=== PATIENT | female | born 1950 | race Caucasian/White ===

== ENCOUNTER 2017-07-04 10:57 | Inpatient (IN) | payer OTHER ==
[2017-07-04 11:11] LABS: BASOPHIL 0.5 % (0-2.0); EOSINOPHIL 1.7 % (0-4.5); MCH 29.4 pg (25.7-33.7); MCHC 33.3 g/dl (32.0-36.0); MEAN CELL VOLUME 88.3 fl (80-96); MEAN PLT VOLUME 7.6 fl (7.5-11.1); NEUTROPHILS 43.7 % (42.8-82.8); PLATELET COUNT 307 K/MM3 (134-434); RDW 13.3 % (11.6-15.6); WHITE BLOOD COUNT 7.6 K/mm3 (4.0-10.0)
--- NOTE | 2017-07-04 11:17 | PDOC ---
History of Present Illness <Lucila Radford - Last Filed: 07/04/17 11:56> - History of Present Illness Initial Comments: 66 year old female BIBEMS with PMH of HTN presenting with symptoms consistent with CVA (dysarthria, and left sided UE + LE weakness after a fall). She was completely fine before 10 AM but then felt weak on her left side and fell to the floor. She was dysarthric when her came to help her up. Her dysrathria worsened during her EMS ride but started to improve slightly at 10: 55 on arrival to the ED. In the ED she was still disarthric, with LUE, and LLE weakness. Denies fevers, chills, nausea, vomiting, diarrhea, or any other sick symptoms. 07/04/17 12:11 <Daniel Mahan - Last Filed: 07/04/17 20:12> - General Stated Complaint: POSS STROKE Time Seen by Provider: 07/04/17 11:17 tPA Exclusion Checklist 0-3hr - Time Elapsed Date last known well: 07/04/17 - Thrombolytic Therapy Candidate Is the patient eligible for Thrombolytic Therapy?: Yes - Exclusion Criteria 0-3hr SBP greater than 185 or DBP greater than 110mmHg despite tx: No Recent IC/spinal surgery,head trauma or stroke w/in last 3mo: No Hx of previous IC hemorrhage, IC neoplasm, AVM or aneurysm: No Active internal bleeding: No Blding diathesis(low plt ct, inc PTT,INR>1.7 or use of NOAC): No Symptoms suggest subarachnoid hemorrhage: No CT demonstrates multilobar infarct(>1/3 cerebral hemiphere): No Arterial puncture at noncompressible site in previous 7 days: No Blood glucose concentration less than 50mg/dL (2.7mmol/L): No - Relative Exclusion Criteria 0-3h Life expectancy <1yr/severe co-morbid illness/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: No : No Patient/family refused: No Rapid improvement: No Stroke severity too mild: No Recent acute ME (w/in previous 3 months): No Seizure at onset with postictal residual neuro impairments: No Major surgery or serious trauma w/in previous 14 days: No Recent GI or hemorrhage (w/in previous 21 days): No <Lucila Radford - Last Filed: 07/04/17 11:56> NIH Stroke Scale - Last Known Well Date/Time & Onset Date Last Known Well: 07/04/17 Time Last Known Well: 10:00 - Initial Evaluation Level of consciousness: Alert Ask patient the month and their age: Answers both correctly Ask patient to open & close eyes; make fist and let go: Obeys both correctly Best gaze (horizontal eye movement): Normal Visual field testing: No visual field loss Facial paresis (Show teeth/raise eyebrows/close eyes tight): Minor paralysis ( flattened nasolabial fold, asymmetry on smiling) Motor Function: Left Arm: Normal Motor Function: Right Arm: Normal (extends arm 90 (or 45) degrees for 10 seconds without drift Motor Function: Left Leg: Drift Motor Function: Right Leg: Normal (extends leg 30 degrees for 5 seconds without drift) Limb Ataxia: Present in one limb Sensory(Use pinprick test arms,legs,trunk,face/side to side): Normal Best language (Describe picture, name items, read sentences): No Aphasia Dysarthria (read several words): Mild to moderate slurring of words Extinction and Inattention: No abnormality (Initial stroke scale on arrival) - Total Score NIH Stroke Scale Score: 4 <Daniel Mahan - Last Filed: 07/04/17 20:12> Past History <Lucila Radford - Last Filed: 07/04/17 11:56> - Past Medical History Anemia: No Asthma: No Cancer: No Cardiac Disorders: No CVA: No COPD: No CHF: No Dementia: No Diabetes: No GI Disorders: No Disorders: No HTN: Yes Hypercholesterolemia: Yes Liver Disease: No Seizures: No Thyroid Disease: Yes (NODULES) - Surgical History Abdominal Surgery: No Appendectomy: No Cardiac Surgery: No Cholecystectomy: No Lung Surgery: No Neurologic Surgery: No Orthopedic Surgery: No - Suicide/Smoking/Psychosocial Hx Smoking History: Never smoked Have you smoked in the past 12 months: No Hx Alcohol Use: No Drug/Substance Use Hx: No Substance Use Type: None Hx Substance Use Treatment: No <Daniel Mahan - Last Filed: 07/04/17 20:12> - Past Medical History Allergies/Adverse Reactions: Allergies Allergy/AdvReac Type Severity Reaction Status Date / Time Penicillins Allergy itching, Verified 07/04/17 11:24 rash bee sting Allergy Swelling Uncoded 07/04/17 11:24 Home Medications: Ambulatory Orders Aspirin [ASA -] 81 mg PO DAILY 09/11/15 Ezetimibe [Zetia] 10 mg PO HS 09/11/15 Multivitamins [Tab-A-Vit -] 1 tab PO DAILY 09/11/15 Nebivolol HCl [Bystolic] 10 mg PO DAILY 09/11/15 Olmesartan Medoxomil [Benicar -] 40 mg PO DAILY 09/11/15 Ranitidine [Zantac -] 150 mg PO DAILY 09/11/15 Review of Systems - Review of Systems Constitutional: No: Chills, Diaphoresis, Fever HEENTM: No: Eye Pain, Blurred Vision Respiratory: No: Cough, Shortness of Breath Cardiac (ROS): No: Chest Pain, Edema, Irregular Heart Rate, Chest Tightness ABD/GI: No: Diarrhea, Nausea, Vomiting Musculoskeletal: Yes: Muscle Weakness Integumentary: No: Bruising, Lesions Neurological: Yes: Unsteady Gait, Ataxia. No: Headache, Numbness, Paresthesia <Daniel Mahan - Last Filed: 07/04/17 20:12> *Physical Exam - Vital Signs Last Vital Signs Temp Pulse Resp BP Pulse Ox 97.0 F L 70 18 130/73 100 07/04/17 10:57 07/04/17 10:57 07/04/17 10:57 07/04/17 10:57 07/04/17 10:57 <Lucila Radford - Last Filed: 07/04/17 11:56> - Physical Exam General Appearance: Yes: Nourished, Appropriately Dressed. No: Apparent Distress HEENT: positive: EOMI, DOREEN. negative: Normal ENT Inspection (Left sided facial droop) Neck: positive: Trachea midline, Normal Thyroid, Supple. negative: Tender, Rigid Respiratory/Chest: positive: Lungs Clear, Normal Breath Sounds. negative: Chest Tender, Respiratory Distress Cardiovascular: positive: Regular Rhythm, Regular Rate, S1, S2. negative: Murmur Gastrointestinal/Abdominal: positive: Normal Bowel Sounds, Flat, Soft. negative : Tender Musculoskeletal: negative: Normal Inspection (Left Upper and Lower extremity weakness) Extremity: positive: Normal Inspection. negative: Normal Range of Motion ( Limted Range of motion in left upper extremity) Integumentary: positive: Normal Color, Dry, Warm Neurologic: positive: Fully Oriented, Alert, Facial Droop (Per NIHSS). 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, Motor Strength 5/5, Finger to Nose (Left sided finger to nose delayed.) <Daniel Mahan - Last Filed: 07/04/17 20:12> ED Treatment Course - LABORATORY CBC & Chemistry Diagram: 07/04/17 11:04 07/04/17 11:03 - ADDITIONAL ORDERS Additional order review: Laboratory Results 07/04/17 07/04/17 11:04 11:03 PT with INR 11.10 INR 0.98 Sodium 138 Potassium 4.2 Chloride 106 Carbon Dioxide 25 Anion Gap 7 L BUN 22 H D Creatinine 0.9 Creat Clearance w eGFR > 60 Random Glucose 90 D Calcium 8.4 L Total Bilirubin 0.4 D AST 18 ALT 28 Alkaline Phosphatase 68 Creatine Kinase 114 Troponin I < 0.02 Total Protein 7.0 Albumin 3.2 L Triglycerides 155 Cholesterol 209 H Total LDL Cholesterol 130 H HDL Cholesterol 55 07/04/17 11:04 RBC 4.84 MCV 88.3 MCHC 33.3 RDW 13.3 MPV 7.6 Neutrophils % 43.7 Lymphocytes % 45.7 H Monocytes % 8.4 Eosinophils % 1.7 Basophils % 0.5 - RADIOLOGY Radiology Studies Ordered: Category Date Time Status HEAD CT (STROKE) [CT] Stat CT Scan 07/04/17 11:10 Completed <Lucila Radford - Last Filed: 07/04/17 11:56> - LABORATORY CBC & Chemistry Diagram: 07/04/17 11:04 07/04/17 11:03 - ADDITIONAL ORDERS Additional order review: 07/04/17 11:04 RBC 4.84 MCV 88.3 MCHC 33.3 RDW 13.3 MPV 7.6 Neutrophils % 43.7 Lymphocytes % 45.7 H Monocytes % 8.4 Eosinophils % 1.7 Basophils % 0.5 <Daniel Mahan - Last Filed: 07/04/17 20:12> Medical Decision Making - Medical Decision Making 66 year old female presenting with symptoms consistent with stroke after a fall. This is a waxing waning picture as EMS says her onset was 10:00 AM followed by a fall and left sided weakness. EMS then reported worsening of symptoms then improvement by 10:55 AM. On arrival her stroke scale was 4. When returning from CT 15 minutes later her stroke scale was a 6. TPA was pushed within an hour of arrival (with consultation of Dr. Young) and her symptoms improved to a stroke scale of 3 with marked improvement of facial palsy, upper extremity distal strength, and lower extremity strength. Patient admitted under Dr. Lara with consults to Marti and Hannah. CT head negative, no need for CTA head/ neck. 07/04/17 20:07 <Daniel Mahan - Last Filed: 07/04/17 20:12> *DC/Admit/Observation/Transfer <Lucila Radford - Last Filed: 07/04/17 11:56> - Discharge Dispostion Admit: Yes <Daniel Mahan - Last Filed: 07/04/17 20:12> Diagnosis at time of Disposition: Cerebrovascular accident (CVA) Qualifiers: CVA mechanism: unspecified Qualified Code(s): I63.9 - Cerebral infarction, unspecified; I63.9 - Cerebral infarction, unspecified; I63.9 - Cerebral infarction, unspecified; I63.9 - Cerebral infarction, unspecified - Discharge Dispostion Condition at time of disposition: Improved
[2017-07-04] MEDS ORDERED: ALTEPLASE 50 MG VIAL IVPB ONE (11:19)
[2017-07-04] MEDS ORDERED: ALTEPLASE 100MG 100 MG IVPB ONE (11:22)
[2017-07-04 11:23] LABS: INR 0.98 (0.82-1.09); PROTHROMBIN TIME (PATIENT) 11.1 SEC (9.98-11.88)
--- NOTE | 2017-07-04 11:24 | PDOC ---
Attending Attestation - Resident Resident Name: Daniel Mahan - ED Attending Attestation I have performed the following: I have examined & evaluated the patient, The case was reviewed & discussed with the resident, I agree w/resident's findings & plan, Exceptions are as noted - HPI HPI: 07/04/17 11:24 66 yo F with c/o sudden onset left sided weakness, slurred speech, suddently felt weak and fell over. unable to get up. en route, pt has mild improvement but still not at baseline. no recent hemorrhage or surgery. no prior cva. - Physicial Exam PE: 07/04/17 11:25 awake alert . mild nasolabial fold flattening. speech mild slurring. lungs clear heart rrr no mrg. abd soft NT ND. ext wwp. nuero: speech mild dysarthria, , nasolabial fold flattening left side. left upper ext 4/5, left lower 4/5. difficulty understanding some commands. skin warm and dry. NIH stroke scale performed score of 4. - Medical Decision Making 07/04/17 11:26 66 yo F with acute onset cva, started at 10 am per her and . will consult DR Mcgee nuerology, code stroke called. differential includes ich, plan ct head, ct angio head and neck. cxr ekg labs. 07/04/17 11:40 pt with initial stroke scale of 4. , with worsening dysarthria and facial weakness in ed. will give TPA. dr mcgee at bedside. 07/04/17 11:51 pt given TPA bolus .09 mg / kg at 11:45, then .81mg/ kg over one hour. d/w pt primary doctor dr girard, will admit to dr. levin. manager council is dr. alcazar. per dr. girard, pt has had a run of afib many years ago, today in sinus rhythm. d/w and patient regarding risk/ benefit of TPA prior to administration. NIH Stroke Scale - Last Known Well Date/Time & Onset Date Last Known Well: 07/04/17 Time Last Known Well: 10:00 - Initial Evaluation Level of consciousness: Alert Ask patient the month and their age: Answers both correctly Ask patient to open & close eyes; make fist and let go: Obeys both correctly Best gaze (horizontal eye movement): Normal Visual field testing: No visual field loss Facial paresis (Show teeth/raise eyebrows/close eyes tight): Minor paralysis ( flattened nasolabial fold, asymmetry on smiling) Motor Function: Left Arm: Normal Motor Function: Right Arm: Normal (extends arm 90 (or 45) degrees for 10 seconds without drift Motor Function: Left Leg: Drift Motor Function: Right Leg: Normal (extends leg 30 degrees for 5 seconds without drift) Limb Ataxia: No ataxia Sensory(Use pinprick test arms,legs,trunk,face/side to side): Normal Best language (Describe picture, name items, read sentences): Mild to moderate aphasia Dysarthria (read several words): Mild to moderate slurring of words Extinction and Inattention: No abnormality - Total Score NIH Stroke Scale Score: 4
[2017-07-04] MEDS: SODIUM CHLORIDE 1,000 ML IV SCH (11:30)
[2017-07-04 11:33] LABS: ALBUMIN 3.2 g/dl (3.4-5.0); ANION GAP 7 (8-16); BILIRUBIN,TOTAL 0.4 mg/dL (0.2-1.0); CALCIUM 8.4 mg/dL (8.5-10.1); CHOLESTEROL 209 mg/dL (50-200); CO2 25 mmol/L (21-32); CREATININE 0.9 mg/dL (0.55-1.02); GLUCOSE,RANDOM 90 mg/dL (74-106); SGOT/AST 18 U/L (15-37); SGPT/ALT 28 U/L (12-78)
[2017-07-04 11:34] LABS: ALK PHOS 68 U/L (45-117); CPK 114 IU/L (26-192); TROPONIN I < 0.02 ng/ml (0.00-0.05)
[2017-07-04] MEDS ORDERED: ONDANSETRON 4 MG/2 ML VIAL IVPUSH PRN (13:10)
[2017-07-04] MEDS ORDERED: ACETAMINOPHEN 325 MG TABLET (FP) PO PRN (13:10)
[2017-07-04] MEDS ORDERED: LABETALOL HCL 5 MG/1 ML (100MG/20 ML VIAL) IVPUSH PRN ×2 (13:15→19:03)
--- NOTE | 2017-07-04 13:17 | CON.NEURO ---
Consult - Past Medical History Cardio/Vascular: Yes: HTN (plapatation,) Gastrointestinal: Yes: GERD - Alcohol/Substance Use Hx Alcohol Use: No - Smoking History Smoking history: Never smoked Have you smoked in the past 12 months: No Home Medications - Allergies Allergies/Adverse Reactions: Allergies Allergy/AdvReac Type Severity Reaction Status Date / Time Penicillins Allergy itching, Verified 07/04/17 11:24 rash bee sting Allergy Swelling Uncoded 07/04/17 11:24 - Home Medications Home Medications: Ambulatory Orders Aspirin [ASA -] 81 mg PO DAILY 09/11/15 Ezetimibe [Zetia] 10 mg PO HS 09/11/15 Multivitamins [Tab-A-Vit -] 1 tab PO DAILY 09/11/15 Nebivolol HCl [Bystolic] 10 mg PO DAILY 09/11/15 Olmesartan Medoxomil [Benicar -] 40 mg PO DAILY 09/11/15 Ranitidine [Zantac -] 150 mg PO DAILY 09/11/15 Physical Exam-Neuro Vital Signs: Vital Signs Temperature 97.0 F L 07/04/17 10:57 Pulse Rate 70 07/04/17 10:57 Respiratory Rate 18 07/04/17 10:57 Blood Pressure 130/73 07/04/17 10:57 O2 Sat by Pulse Oximetry (%) 100 07/04/17 10:57 Labs: INR, PTT INR 0.98 (0.82-1.09) 07/04/17 11:04 Assessment/Plan cc Sudden onset left sided weakness HPI 66 year old female , history of hypertension came with left upper and lower extremity weakness and dysarthria. Her symptoms started at [address] scan done and it was unremarkable. Initially Patient has improved and later detiorated.I saw patient at bedside with her at 11.35 am. She continue to ahve left sided hemiparesis and dysarthria. She has no history of cancer, liver or kidney disease , she is not on any anti coagulation. No active internal bleeding . Ambulatory Orders Aspirin [ASA -] 81 mg PO DAILY 09/11/15 Ezetimibe [Zetia] 10 mg PO HS 09/11/15 Multivitamins [Tab-A-Vit -] 1 tab PO DAILY 09/11/15 Nebivolol HCl [Bystolic] 10 mg PO DAILY 09/11/15 Olmesartan Medoxomil [Benicar -] 40 mg PO DAILY 09/11/15 Ranitidine [Zantac -] 150 mg PO DAILY 09/11/15 Family History ROS was reviewed in chart Neurological Examination NIHSS score is 5 VSS alert oriented 3 speech is dysarthric left sided facial palsy left sided hemiparesis weakness is grade 3 CT head is unremarkable Assessment- acute right mca stroke with nih score of 5, patient came with three hour window and no contraindication identified for tpa Plan to administer tpa -icu admission - no aspirin for 24 hour - stat on lipitor 80 mg once a day caortid ultrasond and echo once stable - repeat ct head tomorrow am - if any headhace or severe vomiting , than stat ct head neruo check, bp control as per protocol speech eval, pt eval stroke education mri of brain once stable feel free to call me if you have any question Lamont Young MD
--- NOTE | 2017-07-04 13:23 | HP ---
Admitting History and Physical - Primary Care Physician PCP: Garrett Garza - Admission Chief Complaint: I fell History of Present Illness: Mrs Sharma is a very pleasant 66 year old female who comes in with stroke like symptoms. She says she got up this morning and while walking, says she lost her balance and fell. She says she did hit her head with the fall. She says she did not lose consciousness but her memory is vague after the fall. The was present and went to help her up. He noted that she could not move her left arm and she had a right sided facial droop. He also says her speech was slurred with this. He was unable to get her up and he called EMS. She presented to the ER where she was evaluated by both the ER physician and the neurologist. Since she was in the window and did not have any contraindications, tPA was administered. She is finishing up her tPA while I am seeing her and states she is beginning to improve. notes her speech is improving and patient says she can now move her left arm. She is having some gingival bleeding but otherwise is without complaint. She denies lightheadedness, dizziness, fevers, chills, chest pain, shortness of breath, nausea, vomiting, diarrhea, constipation, difficulty or pain on urination, numbness, or swelling. She says she had a UTI last week but this has been treated. History Source: Patient, Family Member Limitations to Obtaining History: Clinical Condition - Past Medical History Cardiovascular: Yes: HTN (plapatation,) Gastrointestinal: Yes: GERD - Past Surgical History Past Surgical History: Yes: None - Smoking History Smoking history: Never smoked Have you smoked in the past 12 months: No - Alcohol/Substance Use Hx Alcohol Use: No History of Substance Use: reports: None - Social History Usual Living Arrangement: Yes: With Spouse ADL: Independent History of Recent Travel: No Home Medications - Allergies Allergies/Adverse Reactions: Allergies Allergy/AdvReac Type Severity Reaction Status Date / Time Penicillins Allergy itching, Verified 07/04/17 11:24 rash bee sting Allergy Swelling Uncoded 07/04/17 11:24 - Home Medications Home Medications: Ambulatory Orders Aspirin [ASA -] 81 mg PO DAILY 09/11/15 Ezetimibe [Zetia] 10 mg PO HS 09/11/15 Multivitamins [Tab-A-Vit -] 1 tab PO DAILY 09/11/15 Nebivolol HCl [Bystolic] 10 mg PO DAILY 09/11/15 Olmesartan Medoxomil [Benicar -] 40 mg PO DAILY 09/11/15 Ranitidine [Zantac -] 150 mg PO DAILY 09/11/15 Family Disease History - Family Disease History Family Disease History: Heart Disease: Mother, Brother Review of Systems Findings/Remarks: Full review of systems obtained, as per HPI and otherwise negative. Physical Examination Vital Signs: Vital Signs Temperature 36.1 C L 07/04/17 10:57 Pulse Rate 70 07/04/17 10:57 Respiratory Rate 18 07/04/17 10:57 Blood Pressure 130/73 07/04/17 10:57 O2 Sat by Pulse Oximetry (%) 100 07/04/17 10:57 Constitutional: Yes: Well Nourished, No Distress, Calm Eyes: Yes: Conjunctiva Clear, EOM Intact, PERRL HENT: Yes: Atraumatic, Normocephalic, Other (gingival bleeding. No facial droop noted) Cardiovascular: Yes: Regular Rate and Rhythm. No: Gallop, Murmur, Rub Respiratory: Yes: Regular, CTA Bilaterally. No: Rales, Rhonchi, Wheezes Gastrointestinal: Yes: Normal Bowel Sounds, Soft. No: Distention, Tenderness Extremities: Yes: WNL Edema: No Neurological: No: Facial Droop, Lethargy ...Motor Strength: LUE (4/5), RUE (5/5) Psychiatric: Yes: Alert, Oriented Imaging - Results Cat Scan: Report Reviewed Problem List - Problems (1) Acute CVA (cerebrovascular accident) Assessment/Plan: -patient presents with acute CVA -seen by neurology -given tPA -patient already improving -admit to ICU for monitoring post tPA -hold all anticoagulants -ECHO and carotid ultrasound ordered for the am -PT and ST consult -neurology note reviewed Code(s): I63.9 - CEREBRAL INFARCTION, UNSPECIFIED (2) HTN (hypertension) Assessment/Plan: -allow permissive hypertension -goal BP is below 185/110 -blood pressure monitor per protocol (detailed in orders) -if higher, give labetalol x1 and if does not decrease then start labetalol gtt -if heart rate cannot tolerate labetalol, can use nicardipine instead Code(s): I10 - ESSENTIAL (PRIMARY) HYPERTENSION (3) HLD (hyperlipidemia) Assessment/Plan: -LDL is not at target -on zetia as an outpatient -plan to start statin with close follow up Code(s): E78.5 - HYPERLIPIDEMIA, UNSPECIFIED Qualifiers: Hyperlipidemia type: mixed hyperlipidemia Qualified Code(s): E78.2 - Mixed hyperlipidemia; E78.2 - Mixed hyperlipidemia; E78.2 - Mixed hyperlipidemia (4) Irregular heart rate Assessment/Plan: -patient states she has an irregular heart rate -however cannot tell me exactly what it is -currently bradycardic but sinus -on aspirin but not anticoagulation -follow by Dr Thomas, will place consult Code(s): I49.9 - CARDIAC ARRHYTHMIA, UNSPECIFIED
[2017-07-04 15:44] VITALS: BMI 31.5
--- NOTE | 2017-07-04 15:52 | CONSULT ---
Admitting History and Physical - Past Medical History Cardiovascular: Yes: HTN (plapatation,) Gastrointestinal: Yes: GERD - Past Surgical History Past Surgical History: Yes: None - Smoking History Smoking history: Never smoked Have you smoked in the past 12 months: No - Alcohol/Substance Use Hx Alcohol Use: No History of Substance Use: reports: None - Social History ADL: Independent History of Recent Travel: No History - Admission Reason For Visit: CEREBRAL VASCULAR ACCIDENT (CVA) - Hearing Hearing: Normal Speech Evaluation - Communication Primary Language: BULGARIAN Secondary Language: VIETNAMESE Communication: Yes: Simple Responses, Dysarthria Oral Expression Ability: Yes: Mild Impairment - Speech Production Dysarthria: Yes: Flaccid (secondary to sudden left facial weakness) Able to Make Needs Known: Yes: WNL Intelligibility: Yes: WNL - Speech Characteristics Voice Loudness: Normal Voice Pitch: Yes: Normal Voice Phonatory-based Quality: Yes: Normal Speech Pattern: Normal Speech Clarity: < 25% Nasal Resonance: Normal Articulation: Yes: Precise Rate of Speech: Too Slow - Language/Auditory Comprehension Follows: Yes: 1 Stage Simple Commands (WFL), 2 Stage Simple Commands (WFL) Observation: Able to respond to yes/no queries: Yes, Yes/No Confusion: No, Comprehends Conversational Speech: Yes, Benefits from Slow Speech: No, Benefits from Repetiton: No, Benefits from Increased Volume of Speech: No - Language/Verbal Expression Able to Respond to Simple Queries: Yes: WNL Able to Communicate Wants and Needs: Yes: WNL Functional Communication Status: Yes: WNL Aware of Errors: Yes Attempts to Correct Errors: No Use of Gestures: Yes Written Expression: Not examined Oral Expression: WFL Reading Comprehension: Not examined Calculations: Not examined Attention: Yes: Intact - Memory/Perception FDC Memory: Yes: WNL Short Term Memory: Yes: WNL - Swallow Evaluation/Bedside Assessment Current Nutritional Intake: NPO Oral Secretions: Yes: WFL Tracheostomy Present: No Patient on Ventilator: No Dentition: Yes: Missing Teeth (condition: fair but adequate for mastication) Facial Symmetry at Rest: Facial Droop Left Facial Symmetry on Retraction: Facial Droop Left Facial Movement: Controlled Sensation: Reduced Left Jaw Position: Open at Rest Against Resistance Opening: Weak (left side) Against Resistance Closing: Weak (left side) Pucker Lips: Droops Left Smile: Droops Left Lips, Comment: left facial paralysis observed WFL for speech Lingual Movement: Symmetric Lingual Speed of Movement: Normal Lingual Movement Strgth Against Opposition: Normal Lingual Movement Characteristics: Normal Lingual Comment: WFL for speech and swallowing purposes Soft Palate Description: Normal Color Hard Palate Description: Normal Color Gag Reflex: Strong Bite Reflex: Present Velopharyngeal Movement: Weak Left Laryngeal Elevation: WFL Laryngeal Movement: Able to Palpate Needs Assistance: Yes Rate of Intake: WFL Bolus Size: WFL Labial Seal: Impaired Left Chewing: WFL Oral Prep Time: WFL A-P Transit: WFL Timing of Swallow: WFL Odynophagia: Oral Coughing/Throat Clear: No Change in Voice: No Other Findings/Remarks: 66 yo female seen at bedside for swallow eval to rule out dysphagia. present for this session. Pt is verbal, A&Ox2 cooperative with Belarusian / Uranian as primary language but is proficient in Czech. Admitted to [facility] because of a fall earlier today. Pt presents with left side facial paralysis, droop with reduced sensitivity. Adequate airway protection and vocal quality. Speech rate is slow but may be due to language barrier. Current diet is NPO. Pt given po trials of puree and regular solids with total assistance revealed good acceptance, adequate bolus formation and transport, pharyngeal swallow appears timely. Bolus residue observed after the swallow with regular soft solids. Pt did not realize bolus was still in oral cavity (reduced sensitivity) . Bolus residue cleared with liquids. No s/s of aspiration. Pt given po trials of thin liquids with total assistance revealed good acceptance, adequate labial containment and transport, timely pharyngeal swallow with no s/s of aspiration via cup. ELECTRONIC OPERATOR tried thin liquids via straw but pt had difficulty and exhibited occasional coughing after the swallow. Recommendations - Speech Evaluation, Impression/Plan Impression: Pt presents with moderate left side facial paralysis with reduced sensitivity. Speech is functional but presents with reduce rate. Pt is able to tolerate purees some soft solids and thin liquids via cup at bedside. Pt presents with mild to moderate dysphagia for soft solids with bolus residue in oral cavity after the swallow. Pt should not use straws for liquids at this time. Digital Assistant Goals: tolerate the least restrictive diet without s/s of aspiration. Short Term Goals: tolerate purees, dysphagia chopped with liquids without s/s aspiration. - Dysphagia Impressions/Plan Swallowing Skills: Impaired Dysphagia Impressions: Mild Impairment, Risk of Aspiration *Silent aspiration: cannot be R/O at bedside Dysphagia Treatment Plan: Small Bites, Safe Rate, Elevate HOB during feed, Other (alternate liquids for every 2-3 bites of solids for liquids washdown.) Dysphagia Evaluation Summary: Pt is able to tolerate purees, dysphagia chopped and thin liquids without s/s of aspiration at this time. Trial dysphagia chopped with thin liquids with total assistance as tolerated. Observe standard aspiration precautions. Crush meds for ease of swallow. Alternate liquids for every 2-3 bites of solids. Results given verbally to chargemaster specialist Val, family member and to pcp via chart. ELECTRONIC OPERATOR to follow for diet tolerance and possible intervention for facial paralysis. Recommendations: Neuro Consult - Recommendations Diet Consistency: Dysphagia Minced Medication Administration: Crushed with applesauce Liquids: Thin Liquids (no straws)
[2017-07-04] MEDS ORDERED: ALTEPLASE 100 MG VIAL IVPB STA (16:07)
--- NOTE | 2017-07-04 16:59 | CONSULT ---
Consultation: REQUESTING PROVIDER: Dr. Lara CONSULT REQUEST: Pulm/ Crit Care We have been asked to medically evaluate this patient for ICU management. HISTORY OF PRESENT ILLNESS: This is a 66 y/o F with PMH HTN, GERD, paraoxysmal afib (dx last yr, currently not on tx), recent UTI, who presented to the ED this morning, after a fall. As per pt, she woke up at 8AM this morning and was able to walk around her house without any trouble. However, at 10 AM, she lost her balance while getting dressed, fell and hit the L side of her head and her L elbow. She did not experience LOC. Her found her on the floor and immediately called the ambulance. Once it arrived, she was able to get on the stretcher on her own, since she believed that "she had nothing wrong with her." At the time, she endorsed numbness in her LUE, LLE, and noticed she had a R facial droop and dysarthria. Denied fever, chills, lightheadedness, dizziness, N/V/D/C, or any urinary or bowel changes. When pt arrived in the ED, she was in the appropriate window, so tPA was administered. During the end of the infusion, noted that her speech was improved. Pt was admitted to the ICU for further management. REVIEW OF SYSTEMS: CONSTITUTIONAL: Absent: fever, chills, diaphoresis, generalized weakness, malaise, loss of appetite, weight change HEENT: Absent: rhinorrhea, nasal congestion, throat pain, throat swelling, difficulty swallowing, mouth swelling, ear pain, eye pain, visual changes CARDIOVASCULAR: Absent: chest pain, syncope, palpitations, irregular heart rate, lightheadedness , peripheral edema RESPIRATORY: Absent: cough, shortness of breath, dyspnea with exertion, orthopnea, wheezing, stridor, hemoptysis GASTROINTESTINAL: Absent: abdominal pain, abdominal distension, nausea, vomiting, diarrhea, constipation, melena, hematochezia GENITOURINARY: Absent: dysuria, frequency, urgency, hesitancy, hematuria, flank pain, genital pain MUSCULOSKELETAL: Absent: myalgia, arthralgia, joint swelling, back pain, neck pain SKIN: +ecchymoses on L elbow, L knee Absent: rash, itching, pallor HEMATOLOGIC/IMMUNOLOGIC: Absent: easy bleeding, easy bruising, lymphadenopathy, frequent infections ENDOCRINE: Absent: unexplained weight gain, unexplained weight loss, heat intolerance, cold intolerance NEUROLOGIC: R facial droop, LLE, LUE numbness, closed eyes on exam, gaze deviated to R side Absent: headache, focal weakness or paresthesias, dizziness, unsteady gait, seizure, mental status changes, bladder or bowel incontinence PSYCHIATRIC: Absent: anxiety, depression, suicidal or homicidal ideation, hallucinations. PHYSICAL EXAMINATION Vital Signs - 24 hr 07/04/17 07/04/17 07/04/17 12:00 12:15 12:30 Temperature Pulse Rate Pulse Rate [ 55 L 56 L 58 L Apical] Respiratory 18 18 16 Rate Blood Pressure Blood Pressure 131/87 143/88 174/88 [Left Arm] O2 Sat by Pulse 98 100 100 Oximetry (%) 07/04/17 07/04/17 07/04/17 12:45 13:00 13:15 Temperature Pulse Rate Pulse Rate [ 59 L 57 L 59 L Apical] Respiratory 18 16 18 Rate Blood Pressure Blood Pressure 160/73 156/89 155/86 [Left Arm] O2 Sat by Pulse 100 96 100 Oximetry (%) 07/04/17 07/04/17 07/04/17 13:30 13:45 14:00 Temperature Pulse Rate Pulse Rate [ 58 L 58 L 59 L Apical] Respiratory 18 18 16 Rate Blood Pressure Blood Pressure 166/87 163/84 158/87 [Left Arm] O2 Sat by Pulse 100 98 100 Oximetry (%) 07/04/17 07/04/17 07/04/17 14:30 15:00 15:30 Temperature 97.8 F 97.5 F L Pulse Rate 62 64 Pulse Rate [ 59 L Apical] Respiratory 16 18 22 Rate Blood Pressure 158/81 177/85 Blood Pressure 160/88 [Left Arm] O2 Sat by Pulse 97 100 100 Oximetry (%) 07/04/17 16:00 Temperature Pulse Rate 60 Pulse Rate [ Apical] Respiratory 17 Rate Blood Pressure 173/78 Blood Pressure [Left Arm] O2 Sat by Pulse Oximetry (%) GENERAL: AAOx3, initially with closed eyes, followed by gaze deviated to R side HEAD: Normal with no signs of trauma. EYES: Pupils equal, round and reactive to light, extraocular movements intact, sclera anicteric, conjunctiva clear. NECK: Normal range of motion, without JVD, or masses. No carotid bruits appreciated LUNGS: Breath sounds equal, clear to auscultation bilaterally. No wheezes, and no crackles. No accessory muscle use. HEART: Regular rate and rhythm, normal S1 and S2 without murmur, rub or gallop. In sinus rhythm ABDOMEN: Soft, nontender, not distended, normoactive bowel sounds, no guarding, no rebound, no masses. MUSCULOSKELETAL: Normal range of motion at all joints. No bony deformities or tenderness. No CVA tenderness. NEURO: -Dysathric speech, R facial droop -Gaze deviation to R, L homonymous anopsia -motor strength 2/5 in proximal LUE and LLE, 3/5 distal LUE, LLE. -decreased sensation LUE, LLE SKIN: ecchymoses noted on L anterior patella, L elbow - monitor since pt on tPA Active Medications Generic Name Dose Route Start Last Admin Trade Name Freq PRN Reason Stop Dose Admin Acetaminophen 650 mg 07/04/17 13:10 Tylenol - PO Q4H PRN FEVER OR PAIN Chlorhexidine Gluconate 1 applic 07/04/17 22:00 Hibiclens For Decolonization - TP HS NADER Sodium Chloride 1,000 mls @ 42 mls/hr 07/04/17 11:15 07/04/17 11:30 Normal Saline - IV 42 mls/hr ASDIR NADER Administration Labetalol HCl 10 mg 07/04/17 13:15 Normodyne Injection - IVPUSH ONCE PRN HYPERTENSION Mupirocin 1 applic 07/04/17 22:00 Bactroban Ointment (For Decolonization) - NS 07/09/17 21:59 BID NADER Ondansetron HCl 4 mg 07/04/17 13:10 Zofran Injection IVPUSH Q6H PRN NAUSEA ASSESSMENT/PLAN: 66 y/o F with PMH HTN, GERD, paraoxysmal afib (dx last yr, currently not on tx) , recent UTI, who presented to the ED this morning, after a fall. As per pt, she woke up at 8AM this morning and was able to walk around her house without any trouble. However, at 10 AM, she lost her balance while getting dressed, fell and hit the L side of her head and her L elbow. She did not experience LOC. Her found her on the floor and immediately called the ambulance. Once it arrived, she was able to get on the stretcher on her own, since she believed that "she had nothing wrong with her." At the time, she endorsed numbness in her LUE, LLE, and noticed she had a R facial droop and dysarthria. Denied fever, chills, lightheadedness, dizziness, N/V/D/C, or any urinary or bowel changes. Pt being monitored in ICU for probable R parietal lobe infarct. #Probable R sided parietal lobe infarct r/o embolic etiology -R sided gaze deviation, initially with eyes closed -LUE, LLE weakness 2/5 proximally, 3/5 distally -Last ECHO done 01/2017, repeat ECHO d/t acute sx onset -Receiving tPA, sx onset 10AM this morning -MRA brain -MRA Carotid/neck -Seen by speech & swallow, however as per neuro, keep pt NPO -Seen by Neuro, Dr. Young, Dr. Rose -Cardio on case, Dr. Thomas #HTN- -Currently 157/81, improved from 170's systolic -Keep BP systolic <160 mmHg -Labetalol 10 mg IVP #Hx Paraoxysmal afib -Will need ad terminal makeup operator a/c -Seen by Dr. Thomas, to start eliquis tomorrow #Recent UTI -Currently does not have suprapubic tendernes -F/u UA, UCx #F/E/N NS 42 mls/hr monitor electrolytes Currently NPO Dispo Continued management in ICU Dispo: We will continue to follow the patient. Thank you for this consultative opportunity. Visit type - Emergency Visit Emergency Visit: No - New Patient This patient is new to me today: Yes Date on this admission: 07/04/17 - Critical Care Critical Care patient: Yes Total Critical Care Time (in minutes): 42 Critical Care Statement: The care of this patient involved high complexity decision making to prevent further life threatening deterioration of the patient 's condition and/or to evaluate & treat vital organ system(s) failure or risk of failure.
--- NOTE | 2017-07-04 17:07 | CON.CARD ---
Consult Consult Specialty:: cardio Referred by:: poonam Reason for Consultation:: cva - History of Present Illness Chief Complaint: stroke History of Present Illness: 66 yo female admitted with acute weakness LUE/LLE and slurred speech. dx'd acute CVA, given TPA. remains with weakness L side. she denies cp, sob, palpitations at present. has been in sinus here. states she felt palpitations yest evening about 10 min in total duration--took tagamet and it resolved. PMH: HTN; PAFib HPL - Past Medical History Cardio/Vascular: Yes: HTN (plapatation,) Gastrointestinal: Yes: GERD - Past Surgical History Past Surgical History: Yes: None - Alcohol/Substance Use Hx Alcohol Use: No History of Substance Use: reports: None - Smoking History Smoking history: Never smoked Have you smoked in the past 12 months: No - Social History ADL: Independent History of Recent Travel: No Home Medications - Allergies Allergies/Adverse Reactions: Allergies Allergy/AdvReac Type Severity Reaction Status Date / Time Penicillins Allergy itching, Verified 07/04/17 11:24 rash bee sting Allergy Swelling Uncoded 07/04/17 11:24 - Home Medications Home Medications: Ambulatory Orders Aspirin [ASA -] 81 mg PO DAILY 09/11/15 Ezetimibe [Zetia] 10 mg PO HS 09/11/15 Multivitamins [Tab-A-Vit -] 1 tab PO DAILY 09/11/15 Nebivolol HCl [Bystolic] 10 mg PO DAILY 09/11/15 Olmesartan Medoxomil [Benicar -] 40 mg PO DAILY 09/11/15 Ranitidine [Zantac -] 150 mg PO DAILY 09/11/15 Family Disease History - Family Disease History Family Disease History: Heart Disease: Mother, Brother Review of Systems - Review of Systems Constitutional: denies: Chills, Fever Eyes: denies: Eye Pain HENT: denies: Nasal Congestion Neck: denies: Stiffness Cardiovascular: reports: Palpitations. denies: Chest Pain Respiratory: denies: Orthopnea, PND Gastrointestinal: denies: Diarrhea, Rectal Bleeding Genitourinary: denies: Burning, Hematuria Musculoskeletal: denies: Muscle Pain Integumentary: denies: Rash Neurological: denies: Numbness, Seizure, Syncope Endocrine: denies: Excessive Sweating Hematology/Lymphatic: denies: Excessive Bleeding Vital Signs: Vital Signs Temperature 97.5 F L 07/04/17 15:30 Pulse Rate 60 07/04/17 16:00 Respiratory Rate 17 07/04/17 16:00 Blood Pressure 173/78 07/04/17 16:00 O2 Sat by Pulse Oximetry (%) 100 07/04/17 15:30 Constitutional: Yes: Well Nourished, No Distress Eyes: No: Sclera Icterus HENT: No: Nasal Congestion Neck: No: Decreased ROM Respiratory: Yes: CTA Bilaterally. No: Accessory Muscle Use, Rales, Wheezes Gastrointestinal: Yes: Normal Bowel Sounds. No: Distention, Hepatomegaly, Palpable Mass, Tenderness Cardiovascular: Yes: Regular Rate and Rhythm JVD: No Carotid Bruit: No PMI: Non-Displaced Heart Sounds: Yes: S1, S2. No: Gallop Murmur: No: Systolic Murmur, Diastolic Murmur Musculoskeletal: Yes: Other (No kyphosis) Extremities: No: Cold, Cyanosis Edema: No Peripheral Pulses: 2+ Left Carotid, 2+ Right Carotid, 2+ Left Doralis Pedis, 2+ Right Dorsalis Pedis Integumentary: No: Jaundice Neurological: Yes: Alert, Oriented (x3), Weakness (LUE and LLE) Psychiatric: No: Agitated - Other Data Labs, Other Data: INR, PTT INR 0.98 (0.82-1.09) 07/04/17 11:04 Laboratory Tests 07/04/17 07/04/17 11:03 11:04 WBC 7.6 Hgb 14.2 Plt Count 307 Sodium 138 Potassium 4.2 Carbon Dioxide 25 BUN 22 H D Creatinine 0.9 AST 18 ALT 28 Troponin I < 0.02 Triglycerides 155 Cholesterol 209 H Total LDL Cholesterol 130 H HDL Cholesterol 55 tele: NSR Assessment/Plan Echo 01/18: 1. The left ventricular size is normal. 2. Overall left ventricular systolic function is normal with, an EF between 60 - 65 %. 3. Normal LA pressure. 4. The right ventricle is normal in size and function. 5. Left atrium is mildly dilated by volume. 6. Mild tricuspid regurgitation present. CT head: No acute pathology; old R caudate and R b.g. infarct ECG: NSR, NS TWI v2 (similar to v1)--? lead placement acute ischemic CVA: -seen by neuro today, administered t-PA -? cardioembolic etiology--monitor tele for PAF given prior hx (see below) -echo normal 01/18, no need to repeat given no clinical signs of structural heart dz -given known past PAF (though only brief runs on holter), would favor AC here unless definite alternative etiology is found--timing of initiation per neuro (d /w'd dr mcgee)...not now given tPA administered today -check carotids -plan per neuro Paroxysmal atrial fibrillation -BRIEF EPISODES OF PAFIB ON HOLTER 2009--PT BELIEVES SHE HAD NO SX'S WITH THOSE. -HAS HAD INTERMITTENT POST-PRANDIAL PALPITATIONS AT TIMES, POSSIBLY C/W VAGALLY- INDUCED AFIB EPISODES. -REPEATEDLY D/W'D PT THE INCREASED RISK OF STROKE FROM PAROXYSMAL AFIB WITH CHADS-VASC 3, BUT SHE HAS REPEATEDLY DECLINED AC OR LA APPENDAGE CLOSURE ( WATCHMAN), ONLY WAS WILLING TO TAKE ASA -WILL REQUIRE INITIATION OF INDEFINITE AC AT SOME POINT NOW, TIMING OF WHICH WILL BE DETERMINED BY NEURO (S/P TPA) Essential hypertension -BP'S CHRONICALLY SUBOPTIMAL BUT REASONABLE CONTROL--RARELY 160+. -SHE CANNOT COMPLY WITH PMD DOSING (AM PREDOMINANCE OF HI BP'S SUSPECTED). -ON BENICAR AND BYSTOLIC AT HOME -PT HAS HAD MULT PRIOR BP MED S.E.S WITH DR FREEMAN OVER THE YEARS, DETAILS NOT AVAILABLE TO ME -? PERMISSIVE HTN HERE IN ACUTE ISCHEMIC CVA SETTING VS ? AGGRESSIVE BP CONTROL GIVEN PT IS S/P TPA -BP TARGETS PER NEURO: MESSAGE SENT TO DR MCGEE AND WAITING TO HEAR BACK--IN MEANTIME WILL GIVE IV HYDRALAZINE TO BRING SBP AT LEAST TO <160 RANGE Hypercholesterolemia -NOW SEC PREVENTION. -PT FEARFUL OF MED S.E.S B/C VERY SENSITIVE TO THEM IN PAST, INCL MYALGIAS ON STATIN. -ON ZETIA AT HOME -TO START STATIN HERE EVENTUALLY--TIMING PER NEURO -MAY NOT TOLERATE THIS PRISON estimated time in reviewing pt's chart/other data, performing exam, and formulating mgmt plan = 38 min
[2017-07-04] MEDS ORDERED: NITROGLYCERIN 2% OINTMENT - 1GM PACKET TD ONE (17:17)
--- NOTE | 2017-07-04 18:18 | PN ---
Teaching Attending Note Name of Resident: Tisha Layton ATTENDING PHYSICIAN STATEMENT I saw and evaluated the patient. I reviewed the resident's note and discussed the case with the resident. I agree with the resident's findings and plan as documented. SUBJECTIVE: 66 F, with listed medical history. S/P fall but did not hit her head, no LOC. She was unable to get up off the floor due to left arm/leg weakness. Also noted was a left facial droop and slurred speech. On arrival to the ER she was evaluated and as there was no contraindications and she was within the time frame for tPA therapy, its was administered successfully. Now in the ICU. Awake and alert and oriented. Persistence left facial droop and dysarthria. Power on the left is apparently improving. No CP or SOB or MARIANO/dizziness. Intake & Output 07/01/17 07/02/17 07/03/17 07/04/17 23:59 23:59 23:59 23:59 Weight 195 lb 5.273 oz Last Vital Signs Temp Pulse Resp BP Pulse Ox 97.5 F L 60 18 170/92 100 07/04/17 15:30 07/04/17 16:00 07/04/17 16:30 07/04/17 16:30 07/04/17 15:30 Active Medications Acetaminophen (Tylenol -) 650 mg PO Q4H PRN PRN Reason: FEVER OR PAIN Chlorhexidine Gluconate (Hibiclens For Decolonization -) 1 applic TP HS NADER Hydralazine HCl (Apresoline Injection -) 10 mg IVPUSH ONCE ONE Stop: 07/04/17 18:27 Sodium Chloride (Normal Saline -) 1,000 mls @ 42 mls/hr IV ASDIR NADER Last Admin: 07/04/17 11:30 Dose: 42 mls/hr Labetalol HCl (Normodyne Injection -) 10 mg IVPUSH ONCE PRN PRN Reason: HYPERTENSION Mupirocin (Bactroban Ointment (For Decolonization) -) 1 applic NS BID [facility] Stop: 07/09/17 21:59 Ondansetron HCl (Zofran Injection) 4 mg IVPUSH Q6H PRN PRN Reason: NAUSEA Constitutional: Yes: AAO, obese No Distress Eyes: Yes: Conjunctiva Clear, EOM Intact, PERRL HENT: Yes: left facial droop Cardiovascular: Yes: Regular Rate and Rhythm. No: Gallop, Murmur, Rub Respiratory: Yes: Regular, CTA Bilaterally. No: Rales, Rhonchi, Wheezes Gastrointestinal: Yes: Normal Bowel Sounds, Soft. No: Distention, Tenderness Extremities: Yes: WNL Edema: No Neurological: Yes: Left Facial Droop ...Motor Strength: LUE/LLE (4/5), RUE (5/5) Psychiatric: Yes: Alert, Oriented Imaging - Results Cat Scan: Report Reviewed Problem List - Problems (1) Acute CVA (cerebrovascular accident) Assessment/Plan: Code(s): I63.9 - CEREBRAL INFARCTION, UNSPECIFIED (2) HTN (hypertension) Assessment/Plan: Code(s): I10 - ESSENTIAL (PRIMARY) HYPERTENSION (3) HLD (hyperlipidemia) Assessment/Plan: Code(s): E78.5 - HYPERLIPIDEMIA, UNSPECIFIED Qualifiers: Hyperlipidemia type: mixed hyperlipidemia Qualified Code(s): E78.2 - Mixed hyperlipidemia; E78.2 - Mixed hyperlipidemia; E78.2 - Mixed hyperlipidemia (4) Irregular heart rate Assessment/Plan: Code(s): I49.9 - CARDIAC ARRHYTHMIA, UNSPECIFIED PLAN: Blood pressure goals : Maintain <180/105 for 24 hours. If elevated can use: Nicardipine or Labetalol drip with cautious titration. Q1 BP monitoring Follow Neuro exam Statin therapy HOB elevation Aspiration precautions ASA 325 mg in 24 to 48 hours from tPA administration Mechanical VTE prophylaxis No arterial punctures Glycemic control ICU monitoring Dr Vela Critical care time spent in reviewing chart, evaluating patient and formulating plan - 36 minutes.
[2017-07-04] MEDS ORDERED: hydrALAZINE HCL 20 MG/ML VIAL IVPUSH ONE (18:26)
--- NOTE | 2017-07-04 19:25 | RAPID ---
Physical Examination Vital Signs: Vital Signs Temperature 97.5 F L 07/04/17 15:30 Pulse Rate 70 07/04/17 18:49 Respiratory Rate 12 07/04/17 18:49 Blood Pressure 140/72 07/04/17 18:49 O2 Sat by Pulse Oximetry (%) 100 07/04/17 15:30 Sanju quintero was called for a 66yo F who presented to the ED this morning, with numbness of LUE, LLE, R facial droop and dysarthria at presentation, received tPA on arrival, with improvement in her speech per , who was found to have reduced movement of her LUE by the nurse. No LOC, no SOB, no seizures noted. Dr Garza and ICU team at her bedside. PE: General:Patient is awake,alert Heart: S1, S2, RRR Chest:CTA bilaterally Abd: Non tender, BS+, no palpable masses Neuro: Facial droop on R side, dysarthria Power on 5/5, normal tone and reflexes on R UE and RLE, Power LUE-0/5, LLE-2/5, decreased sensation on LUE and LLE Assessment: #Probable R sided parietal lobe infarct r/o embolic etiology in evolution could be 2/2 to edema _CT head stat -monitor vitals -Neuro exams Q1h -permissive HTN below 185/110 (iv labetalol 10mg on ground if BP> 185/110) - Continue other mx
[2017-07-04] MEDS ORDERED: MUPIROCIN 2% TOPICAL OINTMENT FOR DECOLONIZATION NS SCH (22:00)
[2017-07-04] MEDS ORDERED: CHLORHEXIDINE GLUCONATE 4% CLEANSER FOR DECOLONIZATION TP SCH ×2 (22:00)
[2017-07-04] MEDS: MUPIROCIN 2% TOPICAL OINTMENT FOR DECOLONIZATION NS SCH (22:18)
[2017-07-04] MEDS: PANTOPRAZOLE SODIUM 40 MG VIAL IVPUSH SCH (22:18)
[2017-07-04 22:43] LABS: TROPONIN I 0.07 ng/ml (0.00-0.05)
[2017-07-05] MEDS ORDERED: ACETAMINOPHEN 1000 MG/100 ML VIAL (NON FORMULARY) IVPB PRN ×2 (00:02→17:09)
[2017-07-05 08:12] LABS: BASOPHIL 0.7 % (0-2.0); MCH 29.4 pg (25.7-33.7); MCHC 33.4 g/dl (32.0-36.0); MEAN CELL VOLUME 88.1 fl (80-96); MEAN PLT VOLUME 7.7 fl (7.5-11.1); NEUTROPHILS 77.7 % (42.8-82.8); PLATELET COUNT 306 K/MM3 (134-434); RDW 13.4 % (11.6-15.6); WHITE BLOOD COUNT 13.3 K/mm3 (4.0-10.0)
[2017-07-05 08:28] LABS: INR 1.12 (0.82-1.09); PROTHROMBIN TIME (PATIENT) 12.7 SEC (9.98-11.88)
--- NOTE | 2017-07-05 08:41 | PN ---
Physical Exam: SUBJECTIVE: Patient seen and examined at bedside. Pt is stating she is thirsty and would like coffee. No complaints at this time. Denies pain, headache, nausea , vomiting, dizziness, diarrhea. OBJECTIVE: Vital Signs Period Temp Pulse Resp BP Sys/Calvillo Pulse Ox Last 24 Hr 97 F-101.9 F 55-83 12-22 131-177/66-95 96-100 GENERAL: The patient is awake, alert, and fully oriented, in no acute distress. HEAD: Normal with no signs of trauma. EYES: Rightward gaze at rest. PERRL, extraocular movements intact, sclera anicteric, conjunctiva clear. No ptosis. ENT: oropharynx clear without exudates, slightly dry mucous membranes. NECK: Trachea midline, full range of motion, supple. LUNGS: Breath sounds equal, clear to auscultation bilaterally, no wheezes, no crackles, no accessory muscle use. HEART: Regular rate and rhythm, S1, S2 without murmur, rub or gallop. ABDOMEN: Soft, nontender, nondistended, normoactive bowel sounds, no guarding, no rebound, no hepatosplenomegaly, no masses. EXTREMITIES: 2+ pulses, warm, well-perfused, no edema. NEUROLOGICAL: Left facial droop, Pt unable to elevate eyebrows. Marked L facial droop during smile. Pt only able to shrug right shoulder. 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 Right sided 5/5 strength. Decreased sensation of LEWIS/ LLL. Sensation intact on face b/l PSYCH: Normal mood, normal affect. SKIN: Warm, dry, normal turgor, no rashes or lesions noted Laboratory Results - last 24 hr 07/04/17 07/04/17 07/04/17 17:00 17:00 21:00 WBC RBC Hgb Hct MCV MCH MCHC RDW Plt Count MPV Neutrophils % Lymphocytes % Monocytes % Eosinophils % Basophils % Creatine Kinase 110 Troponin I 0.07 H Blood Type A POSITIVE A POSITIVE Antibody Screen Negative 07/05/17 07/05/17 06:15 06:15 WBC 13.3 H D RBC 5.01 Hgb 14.7 Hct 44.1 MCV 88.1 MCH 29.4 MCHC 33.4 RDW 13.4 Plt Count 306 MPV 7.7 Neutrophils % 77.7 D Lymphocytes % 14.9 D Monocytes % 6.7 Eosinophils % 0.0 D Basophils % 0.7 Creatine Kinase Cancelled Troponin I Cancelled Blood Type Antibody Screen Active Medications Generic Name Dose Route Start Last Admin Trade Name Freq PRN Reason Stop Dose Admin Acetaminophen 650 mg 07/04/17 13:10 Tylenol - PO Q4H PRN FEVER OR PAIN Acetaminophen 1,000 mg 07/05/17 00:02 Ofirmev Injection - IVPB 07/05/17 18:03 Q6H PRN FEVER OR PAIN Chlorhexidine Gluconate 1 applic 07/04/17 22:00 07/04/17 22:19 Hibiclens For Decolonization - TP 1 applic HS NADER Administration Sodium Chloride 1,000 mls @ 42 mls/hr 07/04/17 11:15 07/04/17 11:30 Normal Saline - IV 42 mls/hr ASDIR NADER Administration Labetalol HCl 10 mg 07/04/17 19:03 Normodyne Injection - IVPUSH ONCE PRN HYPERTENSION Mupirocin 1 applic 07/04/17 22:00 07/04/17 22:18 Bactroban Ointment (For Decolonization) - NS 07/09/17 21:59 1 applic BID NADER Administration Ondansetron HCl 4 mg 07/04/17 13:10 Zofran Injection IVPUSH Q6H PRN NAUSEA Pantoprazole Sodium 40 mg 07/04/17 19:45 07/04/17 22:18 Protonix Iv IVPUSH 40 mg DAILY NADER Administration ASSESSMENT/PLAN: 66 y/o F with PMH HTN, GERD, paraoxysmal afib (dx last yr, currently not on tx) , recent UTI, who presented to the ED after a fall and was found to have stroke symptoms. Pt was given TPA and transferred to the unit and was improving. She unfortunately had a second episode of stroke symptoms and received a second head CT which did reveal an ischemic lesion of the right lobe. Pt is being treated for stroke. #Right hemispheric CVA -Left hemiparesis of face and body with diminished sensation -CT demonstrates R lobe ischemic infarct -speech and swallow eval -neuro on board -carotid U/S showed no stenosis -Echo -neuro checks -PT #HTN -Currently controlled -per Dr. Lara's note, control pressure to 185/110 with labetalol and if needed give nicardipine #HLD -not at target -zetia -statin #Hx paroxysmal AF -not on therapy -cardio on board (Gitig) #Recent UTI -Cx neg #FEN -NS @ 42 -lytes wnl -dysphagia chopped #PPX -Protonix -pt received tPA recently #Dispo -transfer to Nico Vyas MD PGY-1 ICU case discussed with attending Visit type - Emergency Visit Emergency Visit: No - New Patient This patient is new to me today: Yes Date on this admission: 07/05/17 - Critical Care Critical Care patient: Yes Total Critical Care Time (in minutes): 35 Critical Care Statement: The care of this patient involved high complexity decision making to prevent further life threatening deterioration of the patient 's condition and/or to evaluate & treat vital organ system(s) failure or risk of failure. - Discharge Referral Referred to [facility] Med P.C.: No
[2017-07-05 09:06] LABS: ANION GAP 7 (8-16); CALCIUM 8.4 mg/dL (8.5-10.1); CO2 26 mmol/L (21-32); CPK 101 IU/L (26-192); CREATININE 0.7 mg/dL (0.55-1.02); GLUCOSE,RANDOM 106 mg/dL (74-106); MAGNESIUM 2.4 mg/dL (1.8-2.4); TROPONIN I 0.17 ng/ml (0.00-0.05)
[2017-07-05] MEDS: PANTOPRAZOLE SODIUM 40 MG VIAL IVPUSH SCH (09:51)
[2017-07-05] MEDS: MUPIROCIN 2% TOPICAL OINTMENT FOR DECOLONIZATION NS SCH (09:52)
--- NOTE | 2017-07-05 11:07 | PN ---
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, Physician Chief Complaint: Patient with L sided facial droop and cannot move L side. Dysarthric on exam so unable to obtain clear subjective but patient says she feels fine. - Current Medication List Current Medications: Active Medications Acetaminophen (Tylenol -) 650 mg PO Q4H PRN PRN Reason: FEVER OR PAIN Acetaminophen (Ofirmev Injection -) 1,000 mg IVPB Q6H PRN PRN Reason: FEVER OR PAIN Stop: 07/05/17 18:03 Chlorhexidine Gluconate (Hibiclens For Decolonization -) 1 applic TP HS [facility] Last Admin: 07/04/17 22:19 Dose: 1 applic Sodium Chloride (Normal Saline -) 1,000 mls @ 42 mls/hr IV ASDIR [facility] Last Admin: 07/04/17 11:30 Dose: 42 mls/hr Labetalol HCl (Normodyne Injection -) 10 mg IVPUSH ONCE PRN PRN Reason: HYPERTENSION Mupirocin (Bactroban Ointment (For Decolonization) -) 1 applic NS BID [facility] Stop: 07/09/17 21:59 Last Admin: 07/05/17 09:52 Dose: 1 applic Ondansetron HCl (Zofran Injection) 4 mg IVPUSH Q6H PRN PRN Reason: NAUSEA Pantoprazole Sodium (Protonix Iv) 40 mg IVPUSH DAILY [facility] Last Admin: 07/05/17 09:51 Dose: 40 mg - Objective Vital Signs: Vital Signs Temperature 37.9 C H 07/05/17 10:00 Pulse Rate 71 07/05/17 10:00 Respiratory Rate 20 07/05/17 10:00 Blood Pressure 161/78 07/05/17 10:00 O2 Sat by Pulse Oximetry (%) 100 07/04/17 21:00 Constitutional: Yes: No Distress, Calm Cardiovascular: Yes: Regular Rate and Rhythm. No: Gallop, Murmur, Rub Respiratory: Yes: Regular, CTA Bilaterally. No: Rales, Rhonchi, Wheezes Gastrointestinal: Yes: Normal Bowel Sounds, Soft. No: Distention, Tenderness Extremities: Yes: WNL Edema: No Neurological: Yes: Dysarthria, Facial Droop (L side) ...Motor Strength: LUE (0/5), LLE (0/5) Labs: CBC, BMP 07/05/17 06:15 07/05/17 06:15 INR, PTT INR 1.12 (0.82-1.09) 07/05/17 06:15 Problem List - Problems (1) Acute CVA (cerebrovascular accident) Code(s): I63.9 - CEREBRAL INFARCTION, UNSPECIFIED (2) HTN (hypertension) Code(s): I10 - ESSENTIAL (PRIMARY) HYPERTENSION (3) HLD (hyperlipidemia) Code(s): E78.5 - HYPERLIPIDEMIA, UNSPECIFIED Qualifiers: Hyperlipidemia type: mixed hyperlipidemia Qualified Code(s): E78.2 - Mixed hyperlipidemia; E78.2 - Mixed hyperlipidemia; E78.2 - Mixed hyperlipidemia (4) Irregular heart rate Code(s): I49.9 - CARDIAC ARRHYTHMIA, UNSPECIFIED Assessment/Plan (1) Acute CVA (cerebrovascular accident) Assessment/Plan: -patient worse today than when seen yesterday on admission -after admission had worsening weakness, repeat head CT showed evolving CVA -today with facial droop and unable to move left extremities -neurology following and appreciate assistance -MRI/MRA ordered, will determine timing of anticoagulation -ECHO cancelled as had recent one as an outpatient -obtain carotid ultrasound but felt this was secondary to PAF -appreciate speech therapy consult Code(s): I63.9 - CEREBRAL INFARCTION, UNSPECIFIED (2) HTN (hypertension) Assessment/Plan: -allowing permissive hypertension -per protocol, maintain BP below 180/105 24 hours after tPA -will d/w neurology about when to initiate tight blood pressure control Code(s): I10 - ESSENTIAL (PRIMARY) HYPERTENSION (3) HLD (hyperlipidemia) Assessment/Plan: -LDL is not at target -patient could not tolerate statin in past secondary to myalgias per cardiology note -will d/w cardiology about lipid lowering agents since LDL is not at goal Code(s): E78.5 - HYPERLIPIDEMIA, UNSPECIFIED Qualifiers: Hyperlipidemia type: mixed hyperlipidemia Qualified Code(s): E78.2 - Mixed hyperlipidemia; E78.2 - Mixed hyperlipidemia; E78.2 - Mixed hyperlipidemia (4) PAF Assessment/Plan: -patient with history of PAF -currently in sinus rhythm -will need full anticoagulation once cleared by neurology Code(s): 32 minutes spent in critical care time with patient
[2017-07-05] MEDS: SODIUM CHLORIDE 1,000 ML IV SCH ×2 (11:19→23:22)
--- NOTE | 2017-07-05 11:36 | PN ---
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 Rapid response called/CT head done.Maintained NPO. Today, pt is verbal with mild dysarthria and left facial droop, tongue deviastion to left. Left neglect but crosses midline with verbal cues. Unable to maintain attention to left or maintain eye contact. Swallow is delayed but brisk. Limited mastication efficiency. Risk of aspiration but fairly functional. o x 3. Unaware of left side paralysis, attempting to clap with no LUE movement c/w Anosognosia.o x 3. Flat affect. Cognitive deficits/insight impairment suspected, not yet fully assessed. Rec: Dys chopped, thin liquid. Monitor for cough,congestion, throat clearing MBS Encourage attention to left side/LUE Excellent rehabilitation candidate
--- NOTE | 2017-07-05 11:58 | EKG ---
Test Reason : Blood Pressure : / mmHG Vent. Rate : 058 BPM Atrial Rate : 058 BPM P-R Int : 142 ms QRS Dur : 088 ms QT Int : 456 ms P-R-T Axes : 006 003 017 degrees QTc Int : 447 ms SINUS BRADYCARDIA NONSPECIFIC T WAVE ABNORMALITY ABNORMAL ECG NO PREVIOUS ECGS AVAILABLE Confirmed by CHRISTOS TUTTLE, CAIO ([id number]) on 07/05/2017 11:58:11 AM Referred By: Confirmed By:CAIO SHER MD
[2017-07-05] MEDS ORDERED: POTASSIUM CHLORIDE TABS 20 MEQ TABLET.ER (FP) PO ONE (15:18)
--- NOTE | 2017-07-05 15:21 | PN ---
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 (short form) - Note 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: CC: cva S: no cp, palps, sob, dizziness. deficits remain. Current Medications Acetaminophen (Tylenol -) 650 mg PO Q4H PRN PRN Reason: FEVER OR PAIN Acetaminophen (Ofirmev Injection -) 1,000 mg IVPB Q6H PRN PRN Reason: FEVER OR PAIN Stop: 07/05/17 18:03 Chlorhexidine Gluconate (Hibiclens For Decolonization -) 1 applic TP HS [facility] Last Admin: 07/04/17 22:19 Dose: 1 applic Sodium Chloride (Normal Saline -) 1,000 mls @ 42 mls/hr IV ASDIR [facility]CLUDES [facility] Last Admin: 07/05/17 11:19 Dose: 42 mls/hr Labetalol HCl (Normodyne Injection -) 10 mg IVPUSH ONCE PRN PRN Reason: HYPERTENSION Mupirocin (Bactroban Ointment (For Decolonization) -) 1 applic NS BID [facility] Stop: 07/09/17 21:59 Last Admin: 07/05/17 09:52 Dose: 1 applic Ondansetron HCl (Zofran Injection) 4 mg IVPUSH Q6H PRN PRN Reason: NAUSEA Pantoprazole Sodium (Protonix Iv) 40 mg IVPUSH DAILY [facility] Last Admin: 07/05/17 09:51 Dose: 40 mg Potassium Chloride (K-Dur -) 20 meq PO ONCE ONE Stop: 07/05/17 15:19 Vital Signs - 24 hr 07/04/17 07/04/17 07/04/17 15:30 16:00 16:30 Temperature 97.5 F L Pulse Rate 64 60 Respiratory 22 17 18 Rate Blood Pressure 177/85 173/78 170/92 O2 Sat by Pulse 100 Oximetry (%) 07/04/17 07/04/17 07/04/17 17:00 17:30 18:00 Temperature Pulse Rate 64 68 68 Respiratory 16 14 21 Rate Blood Pressure 175/83 171/89 177/87 O2 Sat by Pulse 100 Oximetry (%) 07/04/17 07/04/17 07/04/17 18:30 18:49 18:50 Temperature 97 F L Pulse Rate 66 70 68 Respiratory 21 12 18 Rate Blood Pressure 157/81 140/72 140/72 O2 Sat by Pulse Oximetry (%) 07/04/17 07/04/1717 19:06 19:20 19:21 Temperature 101.1 F H Pulse Rate 72 75 72 Respiratory 21 18 21 Rate Blood Pressure 137/67 137/67 136/95 O2 Sat by Pulse Oximetry (%) 07/04/17 07/04/17 07/04/17 21:00 21:06 23:00 Temperature 101.9 F H Pulse Rate 79 80 Respiratory 21 17 20 Rate Blood Pressure 153/77 146/76 O2 Sat by Pulse 100 Oximetry (%) 07/05/17 07/05/17 07/05/17 00:00 02:00 04:00 Temperature 99.4 F Pulse Rate 83 77 74 Respiratory 22 18 19 Rate Blood Pressure 151/79 145/74 157/80 O2 Sat by Pulse Oximetry (%) 07/05/17 07/05/17 07/05/17 06:00 08:00 10:00 Temperature 100.2 F H Pulse Rate 72 72 71 Respiratory 18 18 20 Rate Blood Pressure 152/74 159/66 161/78 O2 Sat by Pulse Oximetry (%) 07/05/17 12:00 Temperature Pulse Rate 73 Respiratory 20 Rate Blood Pressure 165/85 O2 Sat by Pulse Oximetry (%) Intake & Output 07/03/17 07/04/17 07/05/17 07/06/17 07:59 07:59 07:59 07:59 Intake Total 462 Balance 462 Weight 198 lb 1 oz Constitutional: Yes: Well Nourished, No Distress Eyes: No: Sclera Icterus HENT: No: Nasal Congestion Neck: No: Decreased ROM Respiratory: Yes: CTA Bilaterally. No: Accessory Muscle Use, Rales, Wheezes Gastrointestinal: Yes: Normal Bowel Sounds. No: Distention, Hepatomegaly, Palpable Mass, Tenderness Cardiovascular: Yes: Regular Rate and Rhythm JVD: No Carotid Bruit: No PMI: Non-Displaced Heart Sounds: Yes: S1, S2. No: Gallop Murmur: No: Systolic Murmur, Diastolic Murmur Musculoskeletal: Yes: Other (No kyphosis) Extremities: No: Cold, Cyanosis Edema: No Peripheral Pulses: 2+ Left Carotid, 2+ Right Carotid, 2+ Left Doralis Pedis, 2+ Right Dorsalis Pedis Integumentary: No: Jaundice Neurological: Yes: Alert, Oriented (x3), Weakness (LUE and LLE) Psychiatric: No: Agitated - Other Data Labs, Other Data: CBC, BMP 07/05/17 06:15 07/05/17 06:15 Laboratory Tests 07/04/17 07/04/17 07/05/17 11:03 21:00 06:15 Magnesium 2.4 Creatine Kinase 114 110 101 Troponin I < 0.02 0.07 H 0.17 H Albumin 3.2 L Triglycerides 155 Cholesterol 209 H Total LDL Cholesterol 130 H HDL Cholesterol 55 tele: NSR Assessment/Plan Echo 01/18: 1. The left ventricular size is normal. 2. Overall left ventricular systolic function is normal with, an EF between 60 - 65 %. 3. Normal LA pressure. 4. The right ventricle is normal in size and function. 5. Left atrium is mildly dilated by volume. 6. Mild tricuspid regurgitation present. CT head: No acute pathology; old R caudate and R b.g. infarct ECG: NSR, NS TWI v2 (similar to v1)--? lead placement acute ischemic CVA: -s/p t-PA -? cardioembolic etiology--monitor tele for PAF given prior hx (see below) -echo normal 01/18, no need to repeat given no clinical signs of structural heart dz -given known past PAF (though only brief runs on holter), would favor AC here unless definite alternative etiology is found--timing of initiation per neuro (d /w'd dr mcgee - pending MRI/MRA) -plan per neuro Paroxysmal atrial fibrillation -BRIEF EPISODES OF PAFIB ON HOLTER 2009--PT BELIEVES SHE HAD NO SX'S WITH THOSE. -HAS HAD INTERMITTENT POST-PRANDIAL PALPITATIONS AT TIMES, POSSIBLY C/W VAGALLY- INDUCED AFIB EPISODES. -REPEATEDLY D/W'D PT THE INCREASED RISK OF STROKE FROM PAROXYSMAL AFIB WITH CHADS-VASC 3, BUT SHE HAS REPEATEDLY DECLINED AC OR LA APPENDAGE CLOSURE ( WATCHMAN), ONLY WAS WILLING TO TAKE ASA -WILL REQUIRE INITIATION OF INDEFINITE AC AT SOME POINT NOW, TIMING OF WHICH WILL BE DETERMINED BY NEURO (S/P TPA) Essential hypertension -BP'S CHRONICALLY SUBOPTIMAL BUT REASONABLE CONTROL--RARELY 160+. -SHE CANNOT COMPLY WITH PMD DOSING (AM PREDOMINANCE OF HI BP'S SUSPECTED). -ON BENICAR AND BYSTOLIC AT HOME -PT HAS HAD MULT PRIOR BP MED S.E.S WITH DR FREEMAN OVER THE YEARS, DETAILS NOT AVAILABLE TO ME -BP TARGETS PER NEURO Hypercholesterolemia -NOW SEC PREVENTION. -PT FEARFUL OF MED S.E.S B/C VERY SENSITIVE TO THEM IN PAST, INCL MYALGIAS ON STATIN. -ON ZETIA AT HOME -TO START STATIN HERE EVENTUALLY--TIMING PER NEURO -MAY NOT TOLERATE THIS FPC
--- NOTE | 2017-07-05 15:22 | PN ---
Teaching Attending Note Name of Resident: Nico Vyas ATTENDING PHYSICIAN STATEMENT I saw and evaluated the patient. I reviewed the resident's note and discussed the case with the resident. I agree with the resident's findings and plan as documented. SUBJECTIVE: Pt seen and examined in the ICU. Developed dense left hemiplegia overnight, repeat CT head showing delineation of infarct, no bleed. OBJECTIVE: Last Vital Signs Temp Pulse Resp BP Pulse Ox 100.2 F H 73 20 165/85 100 07/05/17 10:00 07/05/17 12:00 07/05/17 12:00 07/05/17 12:00 07/04/17 21:00 Intake & Output 07/02/17 07/03/17 07/04/17 07/05/17 23:59 23:59 23:59 23:59 Intake Total 168 294 Balance 168 294 Weight 195 lb 5.273 oz 198 lb 1 oz Gen: left facial droop Heart: RRR Lung: decreased breath sounds at the bases Abd: soft, nontender Ext: no edema Neuro: flaccid LUE, LLE, sensation intact CBC, BMP 07/05/17 06:15 07/05/17 06:15 Active Medications Acetaminophen (Tylenol -) 650 mg PO Q4H PRN PRN Reason: FEVER OR PAIN Acetaminophen (Ofirmev Injection -) 1,000 mg IVPB Q6H PRN PRN Reason: FEVER OR PAIN Stop: 07/05/17 18:03 Chlorhexidine Gluconate (Hibiclens For Decolonization -) 1 applic TP HS [facility] Last Admin: 07/04/17 22:19 Dose: 1 applic Sodium Chloride (Normal Saline -) 1,000 mls @ 42 mls/hr IV ASDIR [facility] Last Admin: 07/05/17 11:19 Dose: 42 mls/hr Labetalol HCl (Normodyne Injection -) 10 mg IVPUSH ONCE PRN PRN Reason: HYPERTENSION Mupirocin (Bactroban Ointment (For Decolonization) -) 1 applic NS BID [facility] Stop: 07/09/17 21:59 Last Admin: 07/05/17 09:52 Dose: 1 applic Ondansetron HCl (Zofran Injection) 4 mg IVPUSH Q6H PRN PRN Reason: NAUSEA Pantoprazole Sodium (Protonix Iv) 40 mg IVPUSH DAILY [facility] Last Admin: 07/05/17 09:51 Dose: 40 mg Potassium Chloride (K-Dur -) 20 meq PO ONCE ONE Stop: 07/05/17 15:19 ASSESSMENT AND PLAN: Acute Ischemic CVA s/p tPA Paroxysmal Atrial Fibrillation HTN Hypercholesterolemia - neuro checks - allow permissive hypertension - start anticoagulation when ok with neuro - aspiration precautions - PO as tolerated - will need acute rehab/PT - telemetry monitoring
[2017-07-05] MEDS ORDERED: POTASSIUM CHLORIDE ORAL LIQUID 20 MEQ/15 ML PO ONE (16:52)
[2017-07-05] MEDS ORDERED: ACETAMINOPHEN 325 MG TABLET (FP) PO PRN (17:09)
[2017-07-05] MEDS ORDERED: ONDANSETRON 4 MG/2 ML VIAL IVPUSH PRN (17:09)
[2017-07-05] MEDS ORDERED: LABETALOL HCL 5 MG/1 ML (100MG/20 ML VIAL) IVPUSH PRN (17:09)
--- NOTE | 2017-07-05 20:26 | PN ---
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 (short form) - Note 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: HPI 66 year old female , history of hypertension came with left upper and lower extremity weakness and dysarthria. Her symptoms started at 10 am on july 04/ She had ct scan done and it was unremarkable. Initially Patient has improved and later detiorated. She continue to ahve left sided hemiparesis and dysarthria. She has no history of cancer, liver or kidney disease , she is not on any anti coagulation. No active internal bleeding . On july 04, she ws given tpa , Patient was later transferred to icu and where she had drop of her blood pressure and developed large right mca stroke and she also have neglect and flaccid left sided paralysis Ambulatory Orders Neurological Examination NIHSS score is 5 VSS alert oriented 3 speech is dysarthric left sided facial palsy left upper extremity is grade 0 and left lower extremity is grade 1 There is neglect on left side Initial ct scan was unremarkable and later repeat showed early ischemic change of right mca Assessment- acute large right mca stroke, initially patient got tpa and improved and later worsened and repeat ct showed early ischemic changes on right mca region. Plan t- Continue dvt prophylaxis, PT Speech consult appreciated - clinically I suspect she had large stroke and need to hold anti coaglation for five to seven days, though would get better assessment after mri of brain - would start aspirin and continue statin carotid ultrasound is normal - mri of brain pending -prognosis is gurded, spoken to family and usually raise ICP can peak on 4-5 day and given she had large stroke, would watch her closely. feel free to call me if you have any question Lamont Young MD
[2017-07-05] MEDS ORDERED: CHLORHEXIDINE GLUCONATE 4% CLEANSER FOR DECOLONIZATION TP SCH (22:00)
[2017-07-05] MEDS ORDERED: MUPIROCIN 2% TOPICAL OINTMENT FOR DECOLONIZATION NS SCH (22:00)
[2017-07-05] MEDS: ASPIRIN 325 MG TABLET PO SCH (23:22)
[2017-07-06 08:33] LABS: BASOPHIL 0.4 % (0-2.0); EOSINOPHIL 0.5 % (0-4.5); MCH 29.6 pg (25.7-33.7); MCHC 33.5 g/dl (32.0-36.0); MEAN CELL VOLUME 88.2 fl (80-96); NEUTROPHILS 59.2 % (42.8-82.8); PLATELET COUNT 291 K/MM3 (134-434); RDW 13.5 % (11.6-15.6); WHITE BLOOD COUNT 9.3 K/mm3 (4.0-10.0)
--- NOTE | 2017-07-06 08:35 | PN ---
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 (short form) - Note 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: 66 year old female , history of hypertension came with left upper and lower extremity weakness and dysarthria. Her symptoms started at 10 am on july 04/ She had ct scan done and it was unremarkable. Initially Patient has improved and later detiorated. She continue to ahve left sided hemiparesis and dysarthria. On july 04, she ws given tpa , Patient was later transferred to icu and where she had drop of her blood pressure and developed large right mca stroke and she also have neglect and flaccid left sided paralysis Ambulatory Orders bp is 143/84 alert oriented 3 speech is dysarthric left sided facial palsy left upper extremity is grade 0 and left lower extremity is grade 1 There is neglect on left side Initial ct scan was unremarkable and later repeat showed early ischemic change of right mca mri of brain reviewed ( no report available yet) there is large right mca stroke in dwi Assessment- acute large right mca stroke, s/p tpa Patient has dense left sided hemiparesis and neglect , carotid ultrasound is normal Plan t- Continue dvt prophylaxis, PT Speech consult appreciated - conitnue aspirin - lipiotor was ordered - would follow official mri report -prognosis is gurded, spoken to family yesterday and usually raise ICP can peak on 4-5 day and given she had large stroke, would watch her closely. - Lamont Young MD
[2017-07-06 09:11] LABS: ANION GAP 11 (8-16); CALCIUM 8.2 mg/dL (8.5-10.1); CO2 23 mmol/L (21-32); CREATININE 0.7 mg/dL (0.55-1.02); GLUCOSE,RANDOM 91 mg/dL (74-106); MAGNESIUM 2.5 mg/dL (1.8-2.4); PHOSPHOROUS 1.9 mg/dL (2.5-4.9)
[2017-07-06] MEDS: ASPIRIN 325 MG TABLET PO SCH (10:05)
[2017-07-06] MEDS: PANTOPRAZOLE SODIUM 40 MG VIAL IVPUSH SCH (10:05)
--- NOTE | 2017-07-06 10:20 | PN ---
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 (short form) - Note 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: 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: CC: cva S: no cp, palps, sob, dizziness. deficits remain. Current Medications Generic Name Dose Route Start Last Admin Trade Name Freverena PRN Reason Stop Dose Admin Acetaminophen 650 mg 07/05/17 17:09 Tylenol - PO Q4H PRN FEVER OR PAIN Aspirin 325 mg 07/05/17 20:30 07/06/17 10:05 Asa - PO 325 mg DAILY NADER Administration Atorvastatin Calcium 80 mg 07/06/17 22:00 Lipitor - PO HS NADER Sodium Chloride 1,000 mls @ 42 mls/hr 07/05/17 17:09 07/05/17 23:22 Normal Saline - IV Not Given ASDIR NADER Labetalol HCl 10 mg 07/05/17 17:09 Normodyne Injection - IVPUSH ONCE PRN HYPERTENSION Ondansetron HCl 4 mg 07/05/17 17:09 Zofran Injection IVPUSH Q6H PRN NAUSEA Pantoprazole Sodium 40 mg 07/06/17 10:00 07/06/17 10:05 Protonix Iv IVPUSH 40 mg DAILY NADER Administration Vital Signs Period Temp Pulse Resp BP Sys/Calvillo Pulse Ox Last 24 Hr 98 F-99.3 F 60-73 17-20 134-175/64-94 98 Constitutional: Yes: Well Nourished, No Distress Eyes: No: Sclera Icterus Respiratory: Yes: CTA Bilaterally. No: Accessory Muscle Use, Rales, Wheezes Gastrointestinal: Yes: Normal Bowel Sounds. No: Distention, Hepatomegaly, Palpable Mass, Tenderness Cardiovascular: Yes: Regular Rate and Rhythm JVD: No Heart Sounds: Yes: S1, S2. No: Gallop Murmur: No: Systolic Murmur, Diastolic Murmur Extremities: No: Cold, Cyanosis Edema: No Integumentary: No: Jaundice Neurological: Yes: Alert, Oriented (x3), Weakness (LUE and LLE) Psychiatric: No: Agitated - Other Data Labs, Other Data: CBC, BMP 07/06/17 06:00 07/06/17 06:00 tele: SR Echo 01/18: 1. The left ventricular size is normal. 2. Overall left ventricular systolic function is normal with, an EF between 60 - 65 %. 3. Normal LA pressure. 4. The right ventricle is normal in size and function. 5. Left atrium is mildly dilated by volume. 6. Mild tricuspid regurgitation present. CT head: No acute pathology; old R caudate and R b.g. infarct ECG: NSR, NS TWI v2 (similar to v1)--? lead placement Assessment/Plan acute ischemic CVA: -s/p t-PA -? cardioembolic etiology--monitor tele for PAF given prior hx (see below) -echo normal 01/18, no need to repeat given no clinical signs of structural heart dz -given known past PAF (though only brief runs on holter), would favor AC here unless definite alternative etiology is found--timing of initiation per neuro -plan per neuro Paroxysmal atrial fibrillation -BRIEF EPISODES OF PAFIB ON HOLTER 2009--PT BELIEVES SHE HAD NO SX'S WITH THOSE. -HAS HAD INTERMITTENT POST-PRANDIAL PALPITATIONS AT TIMES, POSSIBLY C/W VAGALLY- INDUCED AFIB EPISODES. -REPEATEDLY D/W'D PT THE INCREASED RISK OF STROKE FROM PAROXYSMAL AFIB WITH CHADS-VASC 3, BUT SHE HAS REPEATEDLY DECLINED AC OR LA APPENDAGE CLOSURE ( [facility]), ONLY WAS WILLING TO TAKE ASA -WILL REQUIRE INITIATION OF INDEFINITE AC AT SOME POINT NOW, TIMING OF WHICH WILL BE DETERMINED BY NEURO (S/P TPA) Essential hypertension -BP'S CHRONICALLY SUBOPTIMAL BUT REASONABLE CONTROL NOW -SHE CANNOT COMPLY WITH PMD DOSING (AM PREDOMINANCE OF [place] BP'S SUSPECTED). -ON BENICAR AND BYSTOLIC AT HOME -PT HAS HAD MULT PRIOR BP MED S.E.S WITH DR FREEMAN OVER THE YEARS -BP TARGETS PER NEURO Hypercholesterolemia -NOW SEC PREVENTION. -PT FEARFUL OF MED S.E.S B/C VERY SENSITIVE TO THEM IN PAST, INCL MYALGIAS ON STATIN. -ON ZETIA AT HOME -TO START STATIN HERE EVENTUALLY
[2017-07-06 10:21] LABS: URINE APPEARANCE CLEAR; URINE BILIRUBIN NEGATIVE (NEGATIVE); URINE BLOOD NEGATIVE (NEGATIVE); URINE COLOR STRAW; URINE GLUCOSE (UA) NEGATIVE (NEGATIVE); URINE KETONE NEGATIVE (NEGATIVE); URINE NITRITE NEGATIVE (NEGATIVE); URINE PROTEIN NEGATIVE (NEGATIVE); URINE UROBILINOGEN NEGATIVE mg/dL (0.2-1.0)
--- NOTE | 2017-07-06 11:40 | PN ---
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: Selected Entries 07/04/17 07/04/17 07/04/17 10:57 15:00 15:30 Breakfast Lunch Temperature 97.0 F L 97.8 F 97.5 F L 07/04/17 07/04/17 07/04/17 18:50 19:21 23:00 Breakfast Lunch Temperature 97 F L 101.1 F H 101.9 F H 07/05/17 07/05/17 07/05/17 02:00 10:00 13:42 Breakfast Lunch 25% Temperature 99.4 F 100.2 F H 07/05/17 07/05/17 07/05/17 14:00 18:25 21:00 Breakfast Lunch 50% Temperature 99.3 F 98 F 98.5 F 07/06/17 07/06/17 07/06/17 01:00 06:00 09:55 Breakfast 100% Lunch Temperature 98.8 F 98.7 F 07/06/17 10:00 Breakfast Lunch Temperature 98.4 F Laboratory Tests 07/04/17 07/05/17 07/06/17 11:04 06:15 06:00 WBC 7.6 13.3 H D 9.3 D Dys chopped/thin liquid ordered. MRI noted. Improving attention to left, able to cross midline intermittently without cues. Able to read greeting card well, without neglect.Impaired ability to sustain eye contact. Pt is aware that she can not get out of bed unatteneded "because they told me" but thinks she can drive. Impaired insight but good potential with intensive rehabilitation. Tolerating diet without cough. Educated her on encouraging pt's independence, allowing her to feed herself.
--- NOTE | 2017-07-06 12:50 | PN ---
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, Physician Chief Complaint: Patient is without complaint today and says she feels fine. Denies cp, sob, n/v. - Current Medication List Current Medications: Active Medications Acetaminophen (Tylenol -) 650 mg PO Q4H PRN PRN Reason: FEVER OR PAIN Aspirin (Asa -) 325 mg PO DAILY [facility] Last Admin: 07/06/17 10:05 Dose: 325 mg Atorvastatin Calcium (Lipitor -) 80 mg PO HS [facility] Sodium Chloride (Normal Saline -) 1,000 mls @ 42 mls/hr IV ASDIR [facility] Last Admin: 07/05/17 23:22 Dose: Not Given Labetalol HCl (Normodyne Injection -) 10 mg IVPUSH ONCE PRN PRN Reason: HYPERTENSION Ondansetron HCl (Zofran Injection) 4 mg IVPUSH Q6H PRN PRN Reason: NAUSEA Pantoprazole Sodium (Protonix Iv) 40 mg IVPUSH DAILY [facility] Last Admin: 07/06/17 10:05 Dose: 40 mg - Objective Vital Signs: Vital Signs Temperature 36.9 C 07/06/17 10:00 Pulse Rate 60 07/06/17 10:00 Respiratory Rate 20 07/06/17 10:00 Blood Pressure 142/76 07/06/17 10:00 O2 Sat by Pulse Oximetry (%) 98 07/05/17 21:00 Constitutional: Yes: Well Nourished, No Distress, Calm Cardiovascular: Yes: Regular Rate and Rhythm. No: Gallop, Murmur, Rub Respiratory: Yes: Regular, CTA Bilaterally. No: Rales, Rhonchi, Wheezes Gastrointestinal: Yes: Normal Bowel Sounds, Soft. No: Distention, Tenderness Extremities: Yes: WNL Edema: No Neurological: Yes: Dysarthria, Facial Droop (L side, slightly improved) ...Motor Strength: LUE (0/5), LLE (1/5) Labs: CBC, BMP 07/06/17 06:00 07/06/17 06:00 INR, PTT INR 1.12 (0.82-1.09) 07/05/17 06:15 Problem List - Problems (1) Cerebrovascular accident (CVA) Code(s): I63.9 - CEREBRAL INFARCTION, UNSPECIFIED Qualifiers: CVA mechanism: embolism Precerebral and cerebral artery: middle cerebral artery Laterality of affected vessel: right Qualified Code(s ): I63.411 - Cerebral infarction due to embolism of right middle cerebral artery ; I63.411 - Cerebral infarction due to embolism of right middle cerebral artery ; I63.411 - Cerebral infarction due to embolism of right middle cerebral artery ; I63.411 - Cerebral infarction due to embolism of right middle cerebral artery (2) HTN (hypertension) Code(s): I10 - ESSENTIAL (PRIMARY) HYPERTENSION (3) HLD (hyperlipidemia) Code(s): E78.5 - HYPERLIPIDEMIA, UNSPECIFIED Qualifiers: Hyperlipidemia type: mixed hyperlipidemia Qualified Code(s): E78.2 - Mixed hyperlipidemia; E78.2 - Mixed hyperlipidemia; E78.2 - Mixed hyperlipidemia (4) Atrial fibrillation Code(s): I48.91 - UNSPECIFIED ATRIAL FIBRILLATION Qualifiers: Atrial fibrillation type: paroxysmal Qualified Code(s): I48.0 - Paroxysmal atrial fibrillation; I48.0 - Paroxysmal atrial fibrillation; I48.0 - Paroxysmal atrial fibrillation; I48.0 - Paroxysmal atrial fibrillation Assessment/Plan (1) Acute CVA (cerebrovascular accident) Assessment/Plan: -patient slightly improved today than yesterday -appreciate neurology assistance and note reviewed -hold on full anticoagulation secondary to size of stroke -started on full strength aspirin -continue PT and ST Code(s): I63.9 - CEREBRAL INFARCTION, UNSPECIFIED (2) HTN (hypertension) Assessment/Plan: -allowing permissive hypertension -will start blood pressure control when approved by neurology Code(s): I10 - ESSENTIAL (PRIMARY) HYPERTENSION (3) HLD (hyperlipidemia) Assessment/Plan: -LDL is not at target -statin started -monitor, has history of myalgias Code(s): E78.5 - HYPERLIPIDEMIA, UNSPECIFIED Qualifiers: Hyperlipidemia type: mixed hyperlipidemia Qualified Code(s): E78.2 - Mixed hyperlipidemia; E78.2 - Mixed hyperlipidemia; E78.2 - Mixed hyperlipidemia (4) PAF Assessment/Plan: -patient with history of PAF -currently in sinus rhythm -holding on full anticoagulation Code(s):
[2017-07-06] MEDS: SODIUM CHLORIDE 1,000 ML IV SCH (17:35)
[2017-07-06] MEDS: ATORVASTATIN CA 80 MG TABLET (FP) PO SCH (22:01)
[2017-07-07 07:37] LABS: BASOPHIL 1.6 % (0-2.0); EOSINOPHIL 0.7 % (0-4.5); MCH 29.5 pg (25.7-33.7); MCHC 33.9 g/dl (32.0-36.0); MEAN CELL VOLUME 87.1 fl (80-96); NEUTROPHILS 67.5 % (42.8-82.8); PLATELET COUNT 277 K/MM3 (134-434); WHITE BLOOD COUNT 9.4 K/mm3 (4.0-10.0)
[2017-07-07 07:59] LABS: ANION GAP 12 (8-16); CALCIUM 8.2 mg/dL (8.5-10.1); CO2 23 mmol/L (21-32); CREATININE 0.6 mg/dL (0.55-1.02); GLUCOSE,RANDOM 110 mg/dL (74-106); MAGNESIUM 2.4 mg/dL (1.8-2.4); PHOSPHOROUS 3.1 mg/dL (2.5-4.9)
--- NOTE | 2017-07-07 09:11 | PN ---
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 (short form) - Note 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: 66 year old female , history of hypertension came with left upper and lower extremity weakness and dysarthria. Her symptoms started at 10 am on july 04/ She had ct scan done and it was unremarkable. Initially Patient has improved and later detiorated. She continue to ahve left sided hemiparesis and dysarthria. On july 04, she ws given tpa , Patient was later transferred to icu and where she had drop of her blood pressure and developed large right mca stroke and she also have neglect and flaccid left sided paralysis alert oriented 3 speech is dysarthric left sided facial palsy left upper extremity is grade 0 and left lower extremity is grade 1 There is neglect on left side Initial ct scan was unremarkable and later repeat showed early ischemic change of right mca mri of brain and mra of brain was reviewed there is occlusion of right mca Assessment- acute large right mca stroke, s/p tpa Patient has dense left sided hemiparesis and neglect ,mra showed there is m1/m2 occlusion Plan t- Continue dvt prophylaxis, PT - conitnue aspirin for now and june 10 , anticoagulation can be started - would like to do ct head on monday morning - continue lipitor - would follow official mri report -prognosis is gurded, spoken to family yesterday and usually raise ICP can peak on 4-5 day and given she had large stroke, would watch her closely - spoke to her yesterday evening with other family member, spoke at length about prognosis and future course - Lamont Young MD
[2017-07-07] MEDS: ASPIRIN 325 MG TABLET PO SCH (09:39)
[2017-07-07] MEDS: PANTOPRAZOLE SODIUM 40 MG VIAL IVPUSH SCH (09:39)
--- NOTE | 2017-07-07 10:53 | PN ---
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 She is most frustrated noty being able to use the bathroom. Impaired insight but improved with good ability to learn. Excellent rehab candidate. Pending Calle review.
--- NOTE | 2017-07-07 11:41 | PN ---
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 (short form) - Note 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: 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: CC: cva S: no cp, palps, sob, dizziness. deficits remain. Current Medications Generic Name Dose Route Start Last Admin Trade Name Freverena PRN Reason Stop Dose Admin Acetaminophen 650 mg 07/05/17 17:09 Tylenol - PO Q4H PRN FEVER OR PAIN Aspirin 325 mg 07/05/17 20:30 07/07/17 09:39 Asa - PO 325 mg DAILY NADER Administration Atorvastatin Calcium 80 mg 07/06/17 22:00 07/06/17 22:01 Lipitor - PO 80 mg HS NADER Administration Sodium Chloride 1,000 mls @ 42 mls/hr 07/05/17 17:09 07/06/17 17:35 Normal Saline - IV 42 mls/hr ASDIR NADER Administration Labetalol HCl 10 mg 07/05/17 17:09 Normodyne Injection - IVPUSH ONCE PRN HYPERTENSION Ondansetron HCl 4 mg 07/05/17 17:09 Zofran Injection IVPUSH Q6H PRN NAUSEA Pantoprazole Sodium 40 mg 07/06/17 10:00 07/07/17 09:39 Protonix Iv IVPUSH 40 mg DAILY NADER Administration Vital Signs Period Temp Pulse Resp BP Sys/Calvillo Pulse Ox Last 24 Hr 97.7 F-99.4 F 64-72 16-18 149-167/85-99 95-95 Constitutional: Yes: Well Nourished, No Distress Eyes: No: Sclera Icterus Respiratory: Yes: CTA Bilaterally. No: Accessory Muscle Use, Rales, Wheezes Gastrointestinal: Yes: Normal Bowel Sounds. No: Distention, Hepatomegaly, Palpable Mass, Tenderness Cardiovascular: Yes: Regular Rate and Rhythm JVD: No Heart Sounds: Yes: S1, S2. No: Gallop Murmur: No: Systolic Murmur, Diastolic Murmur Extremities: No: Cold, Cyanosis Edema: No Integumentary: No: Jaundice Neurological: Yes: Alert, Oriented (x3), Weakness (LUE and LLE) Psychiatric: No: Agitated - Other Data Labs, Other Data: CBC, BMP 07/07/17 06:05 07/07/17 06:05 tele: SR Echo 01/18: 1. The left ventricular size is normal. 2. Overall left ventricular systolic function is normal with, an EF between 60 - 65 %. 3. Normal LA pressure. 4. The right ventricle is normal in size and function. 5. Left atrium is mildly dilated by volume. 6. Mild tricuspid regurgitation present. echo 07/2017: nl lv/rv, no sig valve path CT head: No acute pathology; old R caudate and R b.g. infarct ECG: NSR, NS TWI v2 (similar to v1)--? lead placement Assessment/Plan acute ischemic CVA: -s/p t-PA -? cardioembolic etiology--monitor tele for PAF given prior hx (see below) -echo unremarkable here -given known past PAF (though only brief runs on holter), would favor AC here unless definite alternative etiology is found--timing of initiation per neuro -plan per neuro Paroxysmal atrial fibrillation -BRIEF EPISODES OF PAFIB ON HOLTER 2009--PT BELIEVES SHE HAD NO SX'S WITH THOSE. -HAS HAD INTERMITTENT POST-PRANDIAL PALPITATIONS AT TIMES, POSSIBLY C/W VAGALLY- INDUCED AFIB EPISODES. -REPEATEDLY D/W'D PT THE INCREASED RISK OF STROKE FROM PAROXYSMAL AFIB WITH CHADS-VASC 3, BUT SHE HAS REPEATEDLY DECLINED AC OR LA APPENDAGE CLOSURE ( [facility]), ONLY WAS WILLING TO TAKE ASA -WILL REQUIRE INITIATION OF INDEFINITE AC AT SOME POINT NOW, TIMING OF WHICH WILL BE DETERMINED BY NEURO (S/P TPA) Essential hypertension -BP'S CHRONICALLY SUBOPTIMAL BUT REASONABLE CONTROL NOW -SHE CANNOT COMPLY WITH PMD DOSING (AM PREDOMINANCE OF [place] BP'S SUSPECTED). -ON BENICAR AND BYSTOLIC AT HOME -PT HAS HAD MULT PRIOR BP MED S.E.S WITH DR FREEMAN OVER THE YEARS -BP TARGETS PER NEURO Hypercholesterolemia -NOW SEC PREVENTION. -PT FEARFUL OF MED S.E.S B/C VERY SENSITIVE TO THEM IN PAST, INCL MYALGIAS ON STATIN. -ON ZETIA AT HOME -TO START STATIN HERE EVENTUALLY
--- NOTE | 2017-07-07 13:39 | PN ---
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, Physician Chief Complaint: Patient is without complaint today and says she feels fine. Denies cp, sob, n/v. - Current Medication List Current Medications: Active Medications Acetaminophen (Tylenol -) 650 mg PO Q4H PRN PRN Reason: FEVER OR PAIN Aspirin (Asa -) 325 mg PO DAILY [facility] Last Admin: 07/07/17 09:39 Dose: 325 mg Atorvastatin Calcium (Lipitor -) 80 mg PO HS [facility] Last Admin: 07/06/17 22:01 Dose: 80 mg Sodium Chloride (Normal Saline -) 1,000 mls @ 42 mls/hr IV ASDIR [facility] Last Admin: 07/06/17 17:35 Dose: 42 mls/hr Labetalol HCl (Normodyne Injection -) 10 mg IVPUSH ONCE PRN PRN Reason: HYPERTENSION Ondansetron HCl (Zofran Injection) 4 mg IVPUSH Q6H PRN PRN Reason: NAUSEA Pantoprazole Sodium (Protonix Iv) 40 mg IVPUSH DAILY [facility] Last Admin: 07/07/17 09:39 Dose: 40 mg - Objective Vital Signs: Vital Signs Temperature 36.5 C 07/07/17 09:14 Pulse Rate 72 07/07/17 09:14 Respiratory Rate 18 07/07/17 09:14 Blood Pressure 161/96 07/07/17 09:14 O2 Sat by Pulse Oximetry (%) 95 07/07/17 09:00 Constitutional: Yes: Well Nourished, No Distress, Calm Cardiovascular: Yes: Regular Rate and Rhythm. No: Gallop, Murmur, Rub Respiratory: Yes: Regular, CTA Bilaterally. No: Rales, Rhonchi, Wheezes Gastrointestinal: Yes: Normal Bowel Sounds, Soft. No: Distention, Tenderness Extremities: Yes: WNL Edema: No Neurological: Yes: Facial Droop (left side), Other (L sided neglect) ...Motor Strength: LUE (0/5), LLE (0/5) Labs: CBC, BMP 07/07/17 06:05 07/07/17 06:05 INR, PTT INR 1.12 (0.82-1.09) 07/05/17 06:15 Problem List - Problems (1) Cerebrovascular accident (CVA) Code(s): I63.9 - CEREBRAL INFARCTION, UNSPECIFIED Qualifiers: CVA mechanism: embolism Precerebral and cerebral artery: middle cerebral artery Laterality of affected vessel: right Qualified Code(s ): I63.411 - Cerebral infarction due to embolism of right middle cerebral artery ; I63.411 - Cerebral infarction due to embolism of right middle cerebral artery ; I63.411 - Cerebral infarction due to embolism of right middle cerebral artery ; I63.411 - Cerebral infarction due to embolism of right middle cerebral artery (2) HTN (hypertension) Code(s): I10 - ESSENTIAL (PRIMARY) HYPERTENSION (3) HLD (hyperlipidemia) Code(s): E78.5 - HYPERLIPIDEMIA, UNSPECIFIED Qualifiers: Hyperlipidemia type: mixed hyperlipidemia Qualified Code(s): E78.2 - Mixed hyperlipidemia; E78.2 - Mixed hyperlipidemia; E78.2 - Mixed hyperlipidemia (4) Atrial fibrillation Code(s): I48.91 - UNSPECIFIED ATRIAL FIBRILLATION Qualifiers: Atrial fibrillation type: paroxysmal Qualified Code(s): I48.0 - Paroxysmal atrial fibrillation; I48.0 - Paroxysmal atrial fibrillation; I48.0 - Paroxysmal atrial fibrillation; I48.0 - Paroxysmal atrial fibrillation Assessment/Plan (1) Acute CVA (cerebrovascular accident) Assessment/Plan: -neurology note reviewed -patient still with L sided neglect and complete loss of strength of left side -continue aspirin and atorvastatin -continue speech therapy and physical therapy -can start anticoagulation on July 11 Code(s): I63.9 - CEREBRAL INFARCTION, UNSPECIFIED (2) HTN (hypertension) Assessment/Plan: -allowing permissive hypertension -will start blood pressure control when approved by neurology Code(s): I10 - ESSENTIAL (PRIMARY) HYPERTENSION (3) HLD (hyperlipidemia) Assessment/Plan: -LDL is not at target -atorvastatin started -monitor, has history of myalgias Code(s): E78.5 - HYPERLIPIDEMIA, UNSPECIFIED Qualifiers: Hyperlipidemia type: mixed hyperlipidemia Qualified Code(s): E78.2 - Mixed hyperlipidemia; E78.2 - Mixed hyperlipidemia; E78.2 - Mixed hyperlipidemia (4) PAF Assessment/Plan: -patient with history of PAF -currently in sinus rhythm -start anticoagulation on July 11 per neurology Code(s):
[2017-07-07] MEDS: SODIUM CHLORIDE 1,000 ML IV SCH (17:11)
[2017-07-07] MEDS: ATORVASTATIN CA 80 MG TABLET (FP) PO SCH (22:10)
[2017-07-08 07:50] LABS: ANION GAP 11 (8-16); CALCIUM 8.3 mg/dL (8.5-10.1); CO2 24 mmol/L (21-32); CREATININE 0.7 mg/dL (0.55-1.02); GLUCOSE,RANDOM 102 mg/dL (74-106); MAGNESIUM 2.2 mg/dL (1.8-2.4); PHOSPHOROUS 3.2 mg/dL (2.5-4.9)
[2017-07-08 08:04] LABS: BASOPHIL 0.4 % (0-2.0); EOSINOPHIL 2.1 % (0-4.5); MCH 29.9 pg (25.7-33.7); MCHC 34.1 g/dl (32.0-36.0); MEAN CELL VOLUME 87.6 fl (80-96); MEAN PLT VOLUME 8.1 fl (7.5-11.1); NEUTROPHILS 65.1 % (42.8-82.8); PLATELET COUNT 264 K/MM3 (134-434); RDW 13.3 % (11.6-15.6)
--- NOTE | 2017-07-08 09:57 | PN ---
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 (short form) - Note 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: Patient seen and examined. Chart reviewed. Patient well known to me from outpatient care. Currently sitting up in bed. Tolerating breakfast and able to feed herself. No cough noted. Alert and appropriate with persistence of left sided facial droop and UE/LE weakness/neglect. Denies pain or dyspnea. 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 reviewed Medications Labetalol HCl (Normodyne Injection -) 10 mg IVPUSH ONCE PRN PRN Reason: HYPERTENSION Atorvastatin Calcium (Lipitor -) 80 mg PO HS [facility] Last Admin: 07/07/17 22:10 Dose: 80 mg Aspirin (Asa -) 325 mg PO DAILY [facility] Last Admin: 07/07/17 09:39 Dose: 325 mg Pantoprazole Sodium (Protonix Iv) 40 mg IVPUSH DAILY [facility] Last Admin: 07/07/17 09:39 Dose: 40 mg Ondansetron HCl (Zofran Injection) 4 mg IVPUSH Q6H PRN PRN Reason: NAUSEA Acetaminophen (Tylenol -) 650 mg PO Q4H PRN PRN Reason: FEVER OR PAIN Sodium Chloride (Normal Saline -) 1,000 mls @ 42 mls/hr IV ASDIR [facility] Last Admin: 07/07/17 17:11 Dose: 42 mls/hr Selected Entries 07/05/17 07/07/17 07/08/17 06:00 21:00 06:00 Temperature 98.5 F Pulse Rate 66 Respiratory 16 Rate Blood Pressure 156/97 O2 Sat by Pulse 95 Oximetry (%) Oxygen Delivery Room Air Method Weight 198 lb 1 oz Laboratory Tests 07/08/17 07/08/17 06:30 06:30 WBC 10.0 Hgb 14.8 Hct 43.3 Plt Count 264 Sodium 139 Potassium 3.6 Chloride 104 Carbon Dioxide 24 BUN 11 Creatinine 0.7 Random Glucose 102 Calcium 8.3 L Phosphorus 3.2 Magnesium 2.2 Oropharynx Coated tongue Chest Clear Cor RRR No new murmur Telemetry NSR with occasional unifocal PVC Abd soft non-tender Ext No evidence of phlebitis No increased edema Neuro Unchanged left facial droop LUE and LLE weakness and neglect Assessment and Plan Right MCA CVA with profound left sided deficit HTN Will require tighter control Has been intolerant of many medications with idiosyncratic reactions in the past. HPL Intolerant of statins in the past Monitor closely Distant h/o PAF from 2010 Given severity of deficit and risk, would agree with plan of ASA for now and starting NOAC later this week Hypokalemia 3.6 Add daily K+ for now Recheck Caoted tongue Chronic issue for her Will add Mycelex troches Continue current Rx
[2017-07-08] MEDS ORDERED: PT OWN MED DRAWER 7, Y5N ONE ×2 (10:13→22:19)
[2017-07-08] MEDS: ASPIRIN 325 MG TABLET PO SCH (10:16)
[2017-07-08] MEDS: PANTOPRAZOLE SODIUM 40 MG VIAL IVPUSH SCH (10:17)
[2017-07-08] MEDS: SODIUM CHLORIDE 1,000 ML IV SCH ×2 (10:17→18:15)
[2017-07-08] MEDS: POTASSIUM CHLORIDE TABS 20 MEQ TABLET.ER (FP) PO SCH (11:03)
--- NOTE | 2017-07-08 11:07 | PN ---
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 (short form) - Note 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: 66 year old female , history of hypertension came with left upper and lower extremity weakness and dysarthria. Her symptoms started at 10 am on july 04/ She had ct scan done and it was unremarkable. Initially Patient has improved and later detiorated. She continue to ahve left sided hemiparesis and dysarthria. On july 04, she ws given tpa , Patient was later transferred to icu and where she had drop of her blood pressure and developed large right mca stroke and she also have neglect and flaccid left sided paralysis alert oriented 3 speech is dysarthric left sided facial palsy left upper extremity is grade 0 and left lower extremity is grade 1 There is neglect on left side Initial ct scan was unremarkable and later repeat showed early ischemic change of right mca mri of brain and mra of brain was reviewed there is occlusion of right mca Assessment- acute large right mca stroke, s/p tpa Patient has dense left sided hemiparesis and neglect ,mra showed there is m1/m2 occlusion Continue dvt prophylaxis, PT - conitnue aspirin for now and on day seven of stroke , anticoagulation can be started. - would like to do ct head on monday morning - continue lipitor - will continue to follow Lamont Young MD
[2017-07-08] MEDS: CLOTRIMAZOLE 10 MG TROCHE (FP) PO SCH ×3 (14:24→22:19)
--- NOTE | 2017-07-08 14:55 | PN ---
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 (short form) - Note 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: CC: cva S: no cp, palps, sob, dizziness. deficits remain. Current Medications Acetaminophen (Tylenol -) 650 mg PO Q4H PRN PRN Reason: FEVER OR PAIN Aspirin (Asa -) 325 mg PO DAILY [facility] Last Admin: 07/08/17 10:16 Dose: 325 mg Atorvastatin Calcium (Lipitor -) 80 mg PO HS [facility] Last Admin: 07/07/17 22:10 Dose: 80 mg Clotrimazole (Mycelex Mayra's -) 10 mg PO 5XD [facility] Last Admin: 07/08/17 14:24 Dose: 10 mg Sodium Chloride (Normal Saline -) 1,000 mls @ 42 mls/hr IV ASDIR [facility] Last Admin: 07/08/17 10:17 Dose: 42 mls/hr Labetalol HCl (Normodyne Injection -) 10 mg IVPUSH ONCE PRN PRN Reason: HYPERTENSION Ondansetron HCl (Zofran Injection) 4 mg IVPUSH Q6H PRN PRN Reason: NAUSEA Pantoprazole Sodium (Protonix Iv) 40 mg IVPUSH DAILY [facility] Last Admin: 07/08/17 10:17 Dose: 40 mg Potassium Chloride (K-Dur -) 20 meq PO DAILY [facility] Last Admin: 07/08/17 11:03 Dose: 20 meq Vital Signs - 24 hr 07/07/17 07/07/17 07/07/17 18:00 21:00 22:00 Temperature 98.6 F 76 F L Pulse Rate 62 76 Respiratory 18 18 16 Rate Blood Pressure 143/80 160/78 O2 Sat by Pulse 95 Oximetry (%) 07/08/17 07/08/17 02:00 06:00 Temperature 97.5 F L 98.5 F Pulse Rate 70 66 Respiratory 16 16 Rate Blood Pressure 158/89 156/97 O2 Sat by Pulse Oximetry (%) Intake & Output 07/06/17 07/07/17 07/08/17 07/09/17 07:59 07:59 07:59 06:59 Intake Total 1670 2244 1870 Output Total 2600 900 Balance -930 1344 1870 Constitutional: Yes: Well Nourished, No Distress Eyes: No: Sclera Icterus Respiratory: Yes: CTA Bilaterally. No: Accessory Muscle Use, Rales, Wheezes Gastrointestinal: Yes: Normal Bowel Sounds. No: Distention, Hepatomegaly, Palpable Mass, Tenderness Cardiovascular: Yes: Regular Rate and Rhythm JVD: No Heart Sounds: Yes: S1, S2. No: Gallop Murmur: No: Systolic Murmur, Diastolic Murmur Extremities: No: Cold, Cyanosis Edema: No Integumentary: No: Jaundice Neurological: Yes: Alert, Oriented (x3), Weakness (LUE and LLE) Psychiatric: No: Agitated - Other Data Labs, Other Data: CBC, BMP 07/08/17 06:30 07/08/17 06:30 Laboratory Tests 07/08/17 06:30 Magnesium 2.2 tele: SR, pvc's Echo 01/18: 1. The left ventricular size is normal. 2. Overall left ventricular systolic function is normal with, an EF between 60 - 65 %. 3. Normal LA pressure. 4. The right ventricle is normal in size and function. 5. Left atrium is mildly dilated by volume. 6. Mild tricuspid regurgitation present. echo 07/2017: nl lv/rv, no sig valve path CT head: No acute pathology; old R caudate and R b.g. infarct ECG: NSR, NS TWI v2 (similar to v1)--? lead placement Assessment/Plan acute ischemic CVA (M1/M2 occlusion) 07/04: -s/p t-PA -? cardioembolic etiology--monitor tele for PAF given prior hx (see below) -echo unremarkable here -given known past PAF (though only brief runs on holter), would favor AC here unless definite alternative etiology is found--timing of initiation per neuro -plan per neuro. Currently on aspirin. Per neuro, can start AC on day seven ( Mon or tu) Delaying AC due to large sized infarct in order to prevent hemorrhagic conversion. Paroxysmal atrial fibrillation -BRIEF EPISODES OF PAFIB ON HOLTER 2009--PT BELIEVES SHE HAD NO SX'S WITH THOSE. -HAS HAD INTERMITTENT POST-PRANDIAL PALPITATIONS AT TIMES, POSSIBLY C/W VAGALLY- INDUCED AFIB EPISODES. -REPEATEDLY D/W'D PT THE INCREASED RISK OF STROKE FROM PAROXYSMAL AFIB WITH CHADS-VASC 3, BUT SHE HAS REPEATEDLY DECLINED AC OR LA APPENDAGE CLOSURE ( [employer]), ONLY WAS WILLING TO TAKE ASA -07/08: currently on ASA, timing of AC as above. in sr off of av ely blockade. Essential hypertension -BP'S CHRONICALLY SUBOPTIMAL BUT REASONABLE CONTROL NOW -SHE CANNOT COMPLY WITH PMD DOSING (AM PREDOMINANCE OF [place] BP'S SUSPECTED). -ON BENICAR AND BYSTOLIC AT HOME -PT HAS HAD MULT PRIOR BP MED S.E.S WITH DR FREEMAN OVER THE YEARS -BP TARGETS PER NEURO. Hypercholesterolemia -NOW SEC PREVENTION. -PT FEARFUL OF MED S.E.S B/C VERY SENSITIVE TO THEM IN PAST, INCL MYALGIAS ON STATIN. -ON ZETIA AT HOME, started on statin here.
[2017-07-08] MEDS ORDERED: POTASSIUM CHLORIDE TABS 20 MEQ TABLET.ER (FP) PO ONE (15:30)
[2017-07-08] MEDS: ATORVASTATIN CA 80 MG TABLET (FP) PO SCH (22:20)
[2017-07-09] MEDS: CLOTRIMAZOLE 10 MG TROCHE (FP) PO SCH ×5 (06:06→22:53)
[2017-07-09 08:07] LABS: BASOPHIL 0.3 % (0-2.0); EOSINOPHIL 1.6 % (0-4.5); MCH 29.3 pg (25.7-33.7); MCHC 33.1 g/dl (32.0-36.0); MEAN CELL VOLUME 88.8 fl (80-96); NEUTROPHILS 66.7 % (42.8-82.8); PLATELET COUNT 270 K/MM3 (134-434); WHITE BLOOD COUNT 9.8 K/mm3 (4.0-10.0)
[2017-07-09 09:02] LABS: ALBUMIN 3.1 g/dl (3.4-5.0); ALK PHOS 71 U/L (45-117); ANION GAP 8 (8-16); BILIRUBIN,TOTAL 0.8 mg/dL (0.2-1.0); CALCIUM 8.6 mg/dL (8.5-10.1); CO2 26 mmol/L (21-32); CREATININE 0.7 mg/dL (0.55-1.02); GLUCOSE,RANDOM 100 mg/dL (74-106); MAGNESIUM 2.4 mg/dL (1.8-2.4); SGOT/AST 35 U/L (15-37); SGPT/ALT 66 U/L (12-78); TOT PROT 6.8 g/dl (6.4-8.2)
[2017-07-09] MEDS: ASPIRIN 325 MG TABLET PO SCH (10:58)
[2017-07-09] MEDS: POTASSIUM CHLORIDE TABS 20 MEQ TABLET.ER (FP) PO SCH (10:58)
[2017-07-09] MEDS: PANTOPRAZOLE SODIUM 40 MG VIAL IVPUSH SCH (10:58)
--- NOTE | 2017-07-09 11:27 | PN ---
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 (short form) - Note 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: Patient seen and examined. Chart reviewed. Patient well known to me from outpatient care. Currently sitting up in bed. Tolerating breakfast and able to feed herself. No cough noted. Alert and appropriate with persistence of left sided facial droop and UE/LE weakness/neglect. at bedside notes slight increase movement of LLE and some mild resistance in LUE extension. Denies pain or dyspnea. Labs, radiologic procedures and progress/security system sales consultant notes reviewed Selected Entries 07/08/17 07/09/17 21:00 09:00 Temperature 98 F Pulse Rate 72 Respiratory 20 Rate Blood Pressure 150/79 O2 Sat by Pulse 96 Oximetry (%) Oxygen Delivery Room Air Method Laboratory Tests 07/09/17 07/09/17 07:40 07:40 WBC 9.8 Hgb 14.8 Hct 44.9 Plt Count 270 Sodium 139 Potassium 3.6 Chloride 105 Carbon Dioxide 26 BUN 12 Creatinine 0.7 Random Glucose 100 Calcium 8.6 Magnesium 2.4 Total Bilirubin 0.8 D AST 35 D ALT 66 D Alkaline Phosphatase 71 Total Protein 6.8 Oropharynx Coated tongue Chest Clear Cor RRR No new murmur Telemetry NSR with occasional unifocal PVC Abd soft non-tender Ext No evidence of phlebitis No increased edema Neuro Unchanged left facial droop LUE and LLE weakness and neglect persist Some slight improvement with movement in LLE Assessment and Plan 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 HPL Intolerant of statins in the past Monitor closely Distant h/o PAF from 2009 Given severity of deficit and risk, would agree with plan of ASA for now and starting NOAC later this week Telemetry reviewed No AFib noted Hypokalemia 3.6 Add daily K+ for now Recheck Caoted tongue Chronic issue for her Continue Mycelex troches Continue current Rx
--- NOTE | 2017-07-09 12:58 | PN ---
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 (short form) - Note 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: 66 year old female , history of hypertension came with left upper and lower extremity weakness and dysarthria. Her symptoms started at 10 am on july 04/ She had ct scan done and it was unremarkable. Initially Patient has improved and later detiorated. She continue to ahve left sided hemiparesis and dysarthria. On july 04, she ws given tpa , Patient was later transferred to icu and where she had drop of her blood pressure and developed large right mca stroke and she also have neglect and flaccid left sided paralysis she is sitting at chair, no new complain, she is feeling better, though no significant worsening or improvement alert oriented 3 speech is dysarthric left sided facial palsy left upper extremity is grade 0 and left lower extremity is grade 1 There is neglect on left side Initial ct scan was unremarkable and later repeat showed early ischemic change of right mca mri of brain and mra of brain was reviewed there is occlusion of right mca Assessment- acute large right mca stroke, s/p tpa Patient has dense left sided hemiparesis and neglect ,mra showed there is m1/m2 occlusion Continue dvt prophylaxis, PT - conitnue aspirin for now and on day seven of stroke , anticoagulation can be started. - would repeat ct head tomorrow and after that anticoagulation can be started. - family is thinking about rehab to [place] - continue lipitor - will continue to follow Lamont Young MD
[2017-07-09] MEDS: LOSARTAN POTASSIUM 50 MG TABLET (FP) PO SCH (17:00)
[2017-07-09] MEDS: SODIUM CHLORIDE 1,000 ML IV SCH (19:00)
--- NOTE | 2017-07-09 20:55 | PN ---
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 (short form) - Note 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: CC: cva S: no cp, palps, sob, dizziness. deficits remain. bp trending up. Current Medications Acetaminophen (Tylenol -) 650 mg PO Q4H PRN PRN Reason: FEVER OR PAIN Aspirin (Asa -) 325 mg PO DAILY [facility] Last Admin: 07/09/17 10:58 Dose: 325 mg Atorvastatin Calcium (Lipitor -) 80 mg PO HS [facility] Last Admin: 07/08/17 22:20 Dose: 80 mg Clotrimazole (Mycelex Mayra's -) 10 mg PO 5XD [facility] Last Admin: 07/09/17 17:00 Dose: 10 mg Sodium Chloride (Normal Saline -) 1,000 mls @ 42 mls/hr IV ASDIR [facility] Last Admin: 07/08/17 18:15 Dose: 42 mls/hr Labetalol HCl (Normodyne Injection -) 10 mg IVPUSH ONCE PRN PRN Reason: HYPERTENSION Losartan Potassium (Cozaar -) 50 mg PO DAILY [facility] Last Admin: 07/09/17 17:00 Dose: 50 mg Ondansetron HCl (Zofran Injection) 4 mg IVPUSH Q6H PRN PRN Reason: NAUSEA Pantoprazole Sodium (Protonix Iv) 40 mg IVPUSH DAILY [facility] Last Admin: 07/09/17 10:58 Dose: 40 mg Potassium Chloride (K-Dur -) 20 meq PO DAILY [facility] Last Admin: 07/09/17 10:58 Dose: 20 meq Vital Signs - 24 hr 07/08/17 07/09/17 07/09/17 22:00 01:39 EST 05:00 Temperature 99.5 F 98.2 F 98.6 F Pulse Rate 70 76 69 Respiratory 20 18 20 Rate Blood Pressure 182/96 147/79 162/95 O2 Sat by Pulse Oximetry (%) 07/09/17 07/09/17 07/09/17 09:00 16:06 18:06 Temperature 98 F 98.6 F 98.4 F Pulse Rate 72 64 71 Respiratory 20 16 18 Rate Blood Pressure 150/79 146/91 143/91 O2 Sat by Pulse 96 Oximetry (%) Intake & Output 07/07/17 07/08/17 07/09/17 07/10/17 08:59 08:59 07:59 07:59 Intake Total 504 Output Total Balance 504 Constitutional: Yes: Well Nourished, No Distress Eyes: No: Sclera Icterus Respiratory: Yes: CTA Bilaterally. No: Accessory Muscle Use, Rales, Wheezes Gastrointestinal: Yes: Normal Bowel Sounds. No: Distention, Hepatomegaly, Palpable Mass, Tenderness Cardiovascular: Yes: Regular Rate and Rhythm JVD: No Heart Sounds: Yes: S1, S2. No: Gallop Murmur: No: Systolic Murmur, Diastolic Murmur Extremities: No: Cold, Cyanosis Edema: No Integumentary: No: Jaundice Neurological: Yes: Alert, Oriented (x3), Weakness (LUE and LLE) Psychiatric: No: Agitated - Other Data Labs, Other Data: CBC, BMP 07/09/17 07:40 07/09/17 07:40 tele: SR Echo 01/18: 1. The left ventricular size is normal. 2. Overall left ventricular systolic function is normal with, an EF between 60 - 65 %. 3. Normal LA pressure. 4. The right ventricle is normal in size and function. 5. Left atrium is mildly dilated by volume. 6. Mild tricuspid regurgitation present. echo 07/2017: nl lv/rv, no sig valve path CT head: No acute pathology; old R caudate and R b.g. infarct ECG: NSR, NS TWI v2 (similar to v1)--? lead placement Assessment/Plan acute ischemic CVA (M1/M2 occlusion) 07/04: -s/p t-PA -? cardioembolic etiology--monitor tele for PAF given prior hx (see below) -echo unremarkable here -given known past PAF (though only brief runs on holter), would favor AC here unless definite alternative etiology is found--timing of initiation per neuro -plan per neuro. Currently on aspirin. Per neuro, can start AC on day seven ( Mon or tu) Delaying AC due to large sized infarct in order to prevent hemorrhagic conversion. Paroxysmal atrial fibrillation -BRIEF EPISODES OF PAFIB ON HOLTER 2009--PT BELIEVES SHE HAD NO SX'S WITH THOSE. -HAS HAD INTERMITTENT POST-PRANDIAL PALPITATIONS AT TIMES, POSSIBLY C/W VAGALLY- INDUCED AFIB EPISODES. -REPEATEDLY D/W'D PT THE INCREASED RISK OF STROKE FROM PAROXYSMAL AFIB WITH CHADS-VASC 3, BUT SHE HAS REPEATEDLY DECLINED AC OR LA APPENDAGE CLOSURE ( [employer]), ONLY WAS WILLING TO TAKE ASA -07/09: currently on ASA, timing of AC as above. in sr off of av ely blockade. prn lyte repletion (on standing k) Essential hypertension -BP'S CHRONICALLY SUBOPTIMAL BUT REASONABLE CONTROL NOW -SHE CANNOT COMPLY WITH PMD DOSING (AM PREDOMINANCE OF [place] BP'S SUSPECTED). -ON BENICAR AND BYSTOLIC AT HOME -PT HAS HAD MULT PRIOR BP MED S.E.S WITH DR FREEMAN OVER THE YEARS -07/09. BP TARGETS PER NEURO. discussed with neuro, ok to resume normal bp targets. Will start by resuming low dose arb and gradually uptitrate. (on benicar 40, bystolic 10 at home) Hypercholesterolemia -NOW SEC PREVENTION. -PT FEARFUL OF MED S.E.S B/C VERY SENSITIVE TO THEM IN PAST, INCL MYALGIAS ON STATIN. -ON ZETIA AT HOME, started on statin here. stable from CV perspective. ok to d/c telemetry from CV perspective.
[2017-07-09] MEDS ORDERED: PT OWN MED DRAWER 7, Y5N ONE (22:52)
[2017-07-09] MEDS: ATORVASTATIN CA 80 MG TABLET (FP) PO SCH (22:53)
[2017-07-10] MEDS: CLOTRIMAZOLE 10 MG TROCHE (FP) PO SCH ×5 (06:41→21:25)
--- NOTE | 2017-07-10 09:29 | PN ---
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 (short form) - Note 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: Patient seen and examined. Chart reviewed. Patient well known to me from outpatient care. Currently lying supine on stretcher on her way to radiology. Tolerating diet and capable of feeding herself. No cough noted. Alert and appropriate with persistence of left sided facial droop and UE/LE weakness/ neglect. Denies pain or dyspnea. Labs, radiologic procedures and progress/ regulatory affairs consultant notes reviewed Selected Entries 07/09/17 07/10/17 22:00 06:00 Temperature 98.5 F Pulse Rate 71 Respiratory 18 Rate Blood Pressure 150/79 O2 Sat by Pulse 97 Oximetry (%) Oxygen Delivery Room Air Method Laboratory Tests 07/09/17 07/09/17 07:40 07:40 WBC 9.8 Hgb 14.8 Hct 44.9 Plt Count 270 Sodium 139 Potassium 3.6 Chloride 105 Carbon Dioxide 26 BUN 12 Creatinine 0.7 Random Glucose 100 Calcium 8.6 Magnesium 2.4 Total Bilirubin 0.8 D AST 35 D ALT 66 D Alkaline Phosphatase 71 Total Protein 6.8 Albumin 3.1 L Oropharynx Coated tongue Chest Clear Cor RRR No new murmur Telemetry NSR with occasional unifocal PVC Abd soft non-tender Ext No evidence of phlebitis No increased edema Neuro Unchanged left facial droop LUE and LLE weakness and neglect persist Some slight improvement with movement in LLE Assessment and Plan 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 HPL Intolerant of statins in the past Monitor closely Distant h/o PAF from 2009 Given severity of deficit and risk, would agree with plan of ASA for now and starting NOAC later today Telemetry reviewed No AFib noted To start NOAC therapy after/pending CT today Hypokalemia 3.6 Add daily K+ for now Recheck Caoted tongue Chronic issue for her Continue Mycelex troches Continue current Rx
[2017-07-10] MEDS ORDERED: PT OWN MED DRAWER 7, Y5N ONE ×2 (10:39→21:24)
[2017-07-10] MEDS: POTASSIUM CHLORIDE TABS 20 MEQ TABLET.ER (FP) PO SCH (10:47)
[2017-07-10] MEDS: PANTOPRAZOLE SODIUM 40 MG VIAL IVPUSH SCH (10:47)
[2017-07-10] MEDS: ASPIRIN 325 MG TABLET PO SCH (10:47)
[2017-07-10] MEDS: LOSARTAN POTASSIUM 50 MG TABLET (FP) PO SCH (10:47)
--- NOTE | 2017-07-10 11:01 | PN ---
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, Physician Chief Complaint: cva History of Present Illness: remains with flaccid L arm, mild movement ability L leg no palpit, cp, sob - Current Medication List Current Medications: Active Medications Acetaminophen (Tylenol -) 650 mg PO Q4H PRN PRN Reason: FEVER OR PAIN Aspirin (Asa -) 325 mg PO DAILY [facility] Last Admin: 07/10/17 10:47 Dose: 325 mg Atorvastatin Calcium (Lipitor -) 80 mg PO HS [facility] Last Admin: 07/09/17 22:53 Dose: 80 mg Clotrimazole (Mycelex Mayra's -) 10 mg PO 5XD [facility] Last Admin: 07/10/17 10:46 Dose: 10 mg Sodium Chloride (Normal Saline -) 1,000 mls @ 42 mls/hr IV ASDIR [facility] Last Admin: 07/09/17 19:00 Dose: 42 mls/hr Labetalol HCl (Normodyne Injection -) 10 mg IVPUSH ONCE PRN PRN Reason: HYPERTENSION Losartan Potassium (Cozaar -) 50 mg PO DAILY [facility] Last Admin: 07/10/17 10:47 Dose: 50 mg Ondansetron HCl (Zofran Injection) 4 mg IVPUSH Q6H PRN PRN Reason: NAUSEA Pantoprazole Sodium (Protonix Iv) 40 mg IVPUSH DAILY [facility] Last Admin: 07/10/17 10:47 Dose: 40 mg Potassium Chloride (K-Dur -) 20 meq PO DAILY [facility] Last Admin: 07/10/17 10:47 Dose: 20 meq - Objective Vital Signs: Vital Signs Temperature 98.5 F 07/10/17 06:00 Pulse Rate 71 07/10/17 06:00 Respiratory Rate 18 07/10/17 06:00 Blood Pressure 150/79 07/10/17 06:00 O2 Sat by Pulse Oximetry (%) 97 07/09/17 22:00 Constitutional: Yes: Well Nourished, No Distress, Calm Cardiovascular: Yes: Regular Rate and Rhythm, S1, S2. No: Gallop, Murmur Respiratory: Yes: Regular, CTA Bilaterally. No: Accessory Muscle Use Extremities: No: Cold Edema: No Neurological: Yes: Alert, Oriented Psychiatric: No: Agitated Labs: CBC, BMP 07/09/17 07:40 07/09/17 07:40 INR, PTT INR 1.12 (0.82-1.09) 07/05/17 06:15 - ....Imaging EKG: Other (tele: NSR) Assessment/Plan Echo 01/18: 1. The left ventricular size is normal. 2. Overall left ventricular systolic function is normal with, an EF between 60 - 65 %. 3. Normal LA pressure. 4. The right ventricle is normal in size and function. 5. Left atrium is mildly dilated by volume. 6. Mild tricuspid regurgitation present. echo 07/2017: nl lv/rv, no sig valve path CT head: No acute pathology; old R caudate and R b.g. infarct ECG: NSR, NS TWI v2 (similar to v1)--? lead placement Assessment/Plan acute ischemic CVA (M1/M2 occlusion) 07/04: -s/p t-PA -? cardioembolic etiology--monitor tele for PAF given prior hx (see below) -echo unremarkable here -given known past PAF (though only brief runs on holter), would favor AC here unless definite alternative etiology is found--timing of initiation per neuro -d/w'd dr mcgee: to start eliquis today (day 7 from cva presentation), stop aspirin Paroxysmal atrial fibrillation -BRIEF EPISODES OF PAFIB ON HOLTER 2009--PT BELIEVES SHE HAD NO SX'S WITH THOSE. -HAS HAD INTERMITTENT POST-PRANDIAL PALPITATIONS AT TIMES, POSSIBLY C/W VAGALLY- INDUCED AFIB EPISODES. -REPEATEDLY D/W'D PT THE INCREASED RISK OF STROKE FROM PAROXYSMAL AFIB WITH CHADS-VASC 3, BUT SHE HAS REPEATEDLY DECLINED AC OR LA APPENDAGE CLOSURE ( [employer]), ONLY WAS WILLING TO TAKE ASA -07/09: currently on ASA, timing of AC as above. in sr off of av ely blockade. prn lyte repletion (on standing k) Essential hypertension -BP'S CHRONICALLY SUBOPTIMAL BUT REASONABLE CONTROL NOW -SHE CANNOT COMPLY WITH PMD DOSING (AM PREDOMINANCE OF [place] BP'S SUSPECTED). -ON BENICAR AND BYSTOLIC AT HOME -PT HAS HAD MULT PRIOR BP MED S.E.S WITH DR FREEMAN OVER THE YEARS -07/09. BP TARGETS PER NEURO. discussed with neuro, ok to resume normal bp targets. Will start by resuming low dose arb and gradually uptitrate. (on benicar 40, bystolic 10 at home) Hypercholesterolemia -NOW SEC PREVENTION. -PT FEARFUL OF MED S.E.S B/C VERY SENSITIVE TO THEM IN PAST, INCL MYALGIAS ON STATIN. -ON ZETIA AT HOME, started on statin here.
[2017-07-10] MEDS: APIXABAN 5 MG TABLET PO SCH ×2 (12:39→21:25)
--- NOTE | 2017-07-10 13:31 | PN ---
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 (short form) - Note 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: 66 year old female , history of hypertension came with left upper and lower extremity weakness and dysarthria. Her symptoms started at 10 am on july 04/ She had ct scan done and it was unremarkable. Initially Patient has improved and later detiorated. She continue to ahve left sided hemiparesis and dysarthria. On july 04, she ws given tpa , Patient was later transferred to icu and where she had drop of her blood pressure and developed large right mca stroke and she also have neglect and flaccid left sided paralysis she has been stable , today is seventh day post tpa. Patinet clinically has bene stable. alert oriented 3 speech is dysarthric left sided facial palsy left upper extremity is grade 0 and left lower extremity is grade 1 There is neglect on left side Initial ct scan was unremarkable and later repeat showed early ischemic change of right mca mri of brain and mra of brain was reviewed there is occlusion of right mca Assessment- acute large right mca stroke, s/p tpa Patient has dense left sided hemiparesis and neglect ,mra showed there is m1/m2 occlusion As initial 7 days passed and now it would be realtively safe to start anticoagulation Continue dvt prophylaxis, PT - stop aspirin and start eliquis, spoke to pharmacy benefits coordinator - waiting for placement to [facility] - continue lipitor - will continue to follow Lamont Young MD
[2017-07-10] MEDS: SODIUM CHLORIDE 1,000 ML IV SCH (19:07)
[2017-07-10] MEDS: ATORVASTATIN CA 80 MG TABLET (FP) PO SCH (21:25)
[2017-07-11] MEDS: CLOTRIMAZOLE 10 MG TROCHE (FP) PO SCH ×5 (05:12→21:42)
[2017-07-11 07:29] LABS: ANION GAP 7 (8-16); CALCIUM 8.3 mg/dL (8.5-10.1); CO2 28 mmol/L (21-32); CREATININE 0.7 mg/dL (0.55-1.02); GLUCOSE,RANDOM 95 mg/dL (74-106)
--- NOTE | 2017-07-11 10:03 | PN ---
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 (short form) - Note 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: Patient seen and examined. Chart reviewed. Patient well known to me from outpatient care. Currently lying supine in bed. Tolerating diet and capable of feeding herself. No cough noted. Alert and appropriate with persistence of left sided facial droop and UE/LE weakness/neglect. Denies pain or dyspnea. Labs, radiologic procedures and progress/senior sales consultant notes reviewed. 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 Consider increasing losartan to 100 mg po daily HPL Intolerant of statins in the past Monitor closely Distant h/o PAF from 2009 Given severity of deficit and risk, would agree with plan of ASA for now and starting NOAC later today Telemetry reviewed No AFib noted Started NOAC therapy Hypokalemia 3.6 Add daily K+ for now Recheck Caoted tongue Chronic issue for her Continue Mycelex troches Continue current Rx [facility] transfer if accepted
[2017-07-11] MEDS: PANTOPRAZOLE SODIUM 40 MG VIAL IVPUSH SCH (10:05)
[2017-07-11] MEDS ORDERED: ONDANSETRON *ODT* 4 MG TABLET SL PRN (10:05)
[2017-07-11] MEDS: LOSARTAN POTASSIUM 50 MG TABLET (FP) PO SCH (10:05)
[2017-07-11] MEDS: POTASSIUM CHLORIDE TABS 20 MEQ TABLET.ER (FP) PO SCH (10:05)
[2017-07-11] MEDS: APIXABAN 5 MG TABLET PO SCH ×2 (10:05→21:42)
--- NOTE | 2017-07-11 10:51 | PN ---
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 Suggest upgrade to larger copped consaisatency, eg tuna, egg salad, chicken salad, cottage cheese. F/u by RD. Supplements b/n meals.
--- NOTE | 2017-07-11 13:25 | PN ---
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 (short form) - Note 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: CC: CVA S: no cp, palps, dizzines, sob. started on AC Current Medications Acetaminophen (Tylenol -) 650 mg PO Q4H PRN PRN Reason: FEVER OR PAIN Apixaban (Eliquis -) 5 mg PO BID [facility] Last Admin: 07/11/17 10:05 Dose: 5 mg Atorvastatin Calcium (Lipitor -) 80 mg PO HS [facility] Last Admin: 07/10/17 21:25 Dose: 80 mg Clotrimazole (Mycelex Mayra's -) 10 mg PO 5XD [facility] Last Admin: 07/11/17 13:23 Dose: 10 mg Labetalol HCl (Normodyne Injection -) 10 mg IVPUSH ONCE PRN PRN Reason: HYPERTENSION Losartan Potassium (Cozaar -) 50 mg PO DAILY [facility] Last Admin: 07/11/17 10:05 Dose: 50 mg Ondansetron HCl (Zofran Odt -) 4 mg SL TID PRN PRN Reason: NAUSEA Pantoprazole Sodium (Protonix -) 40 mg PO DAILY [facility] Potassium Chloride (K-Dur -) 20 meq PO DAILY [facility] Last Admin: 07/11/17 10:05 Dose: 20 meq Vital Signs - 24 hr 07/10/17 07/10/17 07/10/17 14:16 18:00 20:22 Temperature 98.5 F 98.5 F Pulse Rate 72 71 Respiratory 16 18 Rate Blood Pressure 131/94 175/95 O2 Sat by Pulse 92 L Oximetry (%) 07/10/17 07/11/17 07/11/17 20:43 02:00 06:00 Temperature 98.5 F 98.1 F 98.5 F Pulse Rate 74 71 80 Respiratory 16 16 16 Rate Blood Pressure 144/76 162/97 171/98 O2 Sat by Pulse Oximetry (%) 07/11/17 07/11/17 09:00 10:00 Temperature 98.2 F Pulse Rate 69 Respiratory 16 18 Rate Blood Pressure 152/91 O2 Sat by Pulse 92 L Oximetry (%) Intake & Output 07/09/17 07/10/17 07/11/17 07/12/17 07:59 07:59 07:59 07:59 Intake Total 1008 1508 250 Output Total 200 Balance 808 1508 250 Constitutional: Yes: Well Nourished, No Distress Eyes: No: Sclera Icterus Respiratory: Yes: CTA Bilaterally. No: Accessory Muscle Use, Rales, Wheezes Gastrointestinal: Yes: Normal Bowel Sounds. No: Distention, Hepatomegaly, Palpable Mass, Tenderness Cardiovascular: Yes: Regular Rate and Rhythm JVD: No Heart Sounds: Yes: S1, S2. No: Gallop Murmur: No: Systolic Murmur, Diastolic Murmur Extremities: No: Cold, Cyanosis Edema: No Integumentary: No: Jaundice Neurological: Yes: Alert, Oriented (x3), Weakness (LUE and LLE) Psychiatric: No: Agitated Laboratory Tests 07/09/17 07/09/17 07/11/17 07:40 07:40 06:30 Hgb 14.8 Potassium 3.9 Creatinine 0.7 Calcium 8.3 L Albumin 3.1 L tele: NSR Assessment/Plan Echo 01/18: 1. The left ventricular size is normal. 2. Overall left ventricular systolic function is normal with, an EF between 60 - 65 %. 3. Normal LA pressure. 4. The right ventricle is normal in size and function. 5. Left atrium is mildly dilated by volume. 6. Mild tricuspid regurgitation present. echo 07/2017: nl lv/rv, no sig valve path CT head: No acute pathology; old R caudate and R b.g. infarct ECG: NSR, NS TWI v2 (similar to v1)--? lead placement Assessment/Plan acute ischemic CVA (M1/M2 occlusion) 07/04: -s/p t-PA -? cardioembolic etiology--monitor tele for PAF given prior hx (see below) -echo unremarkable here -given known past PAF (though only brief runs on holter), would favor AC here unless definite alternative etiology is found--timing of initiation per neuro -d/w'd dr mcgee: started on eliquis (day 7 from cva presentation), stopped aspirin Paroxysmal atrial fibrillation -BRIEF EPISODES OF PAFIB ON HOLTER 2009--PT BELIEVES SHE HAD NO SX'S WITH THOSE. -HAS HAD INTERMITTENT POST-PRANDIAL PALPITATIONS AT TIMES, POSSIBLY C/W VAGALLY- INDUCED AFIB EPISODES. 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 -ON BENICAR AND BYSTOLIC AT HOME -PT HAS HAD MULT PRIOR BP MED S.E.S WITH DR FREEMAN OVER THE YEARS -07/09. BP TARGETS PER NEURO. discussed with neuro, ok to resume normal bp targets. Will start by resuming low dose arb and gradually uptitrate. (on benicar 40, bystolic 10 at home) - 07/11 bp suboptimal will increase losartan dose. Hypercholesterolemia -NOW SEC PREVENTION. -PT FEARFUL OF MED S.E.S B/C VERY SENSITIVE TO THEM IN PAST, INCL MYALGIAS ON STATIN. -ON ZETIA AT HOME, started on statin here.
--- NOTE | 2017-07-11 15:10 | PN ---
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 (short form) - Note 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: 66 year old female , history of hypertension came with left upper and lower extremity weakness and dysarthria. Her symptoms started at 10 am on july 04/ She had ct scan done and it was unremarkable. Initially Patient has improved and later detiorated. She continue to ahve left sided hemiparesis and dysarthria. On july 04, she ws given tpa , Patient was later transferred to icu and where she had drop of her blood pressure and developed large right mca stroke and she also have neglect and flaccid left sided paralysis she has been stable , today is seventh day post tpa. Keshav clinically has bene stable. she was started on AC yesterday alert oriented 3 speech is dysarthric left sided facial palsy left upper extremity is grade 0 and left lower extremity is grade 1 There is neglect on left side Initial ct scan was unremarkable and later repeat showed early ischemic change of right mca mri of brain and mra of brain was reviewed there is occlusion of right mca Assessment- acute large right mca stroke, s/p tpa Patient has dense left sided hemiparesis and neglect ,mra showed there is m1/m2 occlusion she was started on AC yesteday and tolerating very well Continue dvt prophylaxis, PT - stop aspirin and start eliquis, spoke to weaving machine operator - may go to rehab tomorrow - continue lipitor - will continue to follow Lamont Young MD
[2017-07-11] MEDS: ATORVASTATIN CA 80 MG TABLET (FP) PO SCH (21:42)
[2017-07-12 08:02] LABS: BASOPHIL 0.7 % (0-2.0); MCH 29.8 pg (25.7-33.7); MCHC 33.8 g/dl (32.0-36.0); MEAN CELL VOLUME 88.1 fl (80-96); MEAN PLT VOLUME 8.1 fl (7.5-11.1); NEUTROPHILS 62.8 % (42.8-82.8); PLATELET COUNT 291 K/MM3 (134-434); RDW 13.2 % (11.6-15.6); WHITE BLOOD COUNT 9.7 K/mm3 (4.0-10.0)
--- NOTE | 2017-07-12 09:00 | DS ---
Physical Examination Vital Signs: Vital Signs Temperature 98.2 F 07/12/17 08:10 Pulse Rate 72 07/12/17 08:10 Respiratory Rate 14 07/12/17 08:10 Blood Pressure 150/86 07/12/17 08:10 O2 Sat by Pulse Oximetry (%) 96 07/11/17 21:00 Constitutional: Yes: No Distress, Calm HENT: Yes: Other (tongue coating improved) Cardiovascular: Yes: Regular Rate and Rhythm Respiratory: Yes: CTA Bilaterally Gastrointestinal: Yes: Normal Bowel Sounds Neurological: Yes: Facial Droop (left), Weakness (left side) Labs: CBC, BMP 07/12/17 05:20 Discharge Summary Reason For Visit: CEREBRAL VASCULAR ACCIDENT (CVA) Current Active Problems Acute CVA (cerebrovascular accident) (Acute) Cerebrovascular accident (CVA) (Acute) HLD (hyperlipidemia) (Chronic) HTN (hypertension) (Chronic) Hospital Course: Please refer to daily notes and problem list. 66 year old with h/o HTN and HLP, intolerant of numerous classes of antihypertensive agents as well as statins presented with profound right MCA area CVA treated with tPA. 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 Profound left sided weakness persists. For [facility]. May ultimately require additional anti-hypertensive Rx. Had previously been on Benicar and Bystolic. Monitor response to current regimen and tolerance to atorvastatin. Condition: Good - Instructions Diet, Activity, Other Instructions: 2 gm Na+ Dysphagia Chopped Disposition: TRANSFER ACUTE CARE/OTHER HOSP - Home Medications Comprehensive Discharge Medication List: Ambulatory Orders Multivitamins [Multivit ([facility] Formulary)] 1 tab PO DAILY 09/11/15 Acetaminophen [Tylenol .Regular Strength -] 650 mg PO Q4H PRN tablet 07/12/17 Apixaban [Eliquis -] 5 mg PO BID tablet 07/12/17 Atorvastatin Ca [Lipitor] 80 mg PO HS tablet 07/12/17 Losartan Potassium [Cozaar -] 50 mg PO DAILY tablet 07/12/17 Pantoprazole Sodium [Protonix -] 40 mg PO DAILY tablet.ec 07/12/17 Potassium Chloride [K-Dur -] 20 meq PO DAILY tablet.er 07/12/17
[2017-07-12 09:19] LABS: ANION GAP 9 (8-16); CALCIUM 8.9 mg/dL (8.5-10.1); CO2 28 mmol/L (21-32); CREATININE 0.7 mg/dL (0.55-1.02); GLUCOSE,RANDOM 111 mg/dL (74-106)
[2017-07-12] MEDS: APIXABAN 5 MG TABLET PO SCH ×2 (09:59→21:21)
[2017-07-12] MEDS: POTASSIUM CHLORIDE TABS 20 MEQ TABLET.ER (FP) PO SCH (09:59)
[2017-07-12] MEDS: PANTOPRAZOLE 40 MG TABLET (FP) PO SCH (09:59)
[2017-07-12] MEDS: LOSARTAN POTASSIUM 100 MG TABLET PO SCH (09:59)
[2017-07-12] MEDS: CLOTRIMAZOLE 10 MG TROCHE (FP) PO SCH ×4 (10:00→21:22)
--- NOTE | 2017-07-12 11:49 | PN ---
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 (short form) - Note 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: 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: CC: cva S: no cp, palps, sob, dizziness. Current Medications Generic Name Dose Route Start Last Admin Trade Name Kirill PRN Reason Stop Dose Admin Acetaminophen 650 mg 07/05/17 17:09 Tylenol - PO Q4H PRN FEVER OR PAIN Apixaban 5 mg 07/10/17 11:15 07/12/17 09:59 Eliquis - PO 5 mg BID [facility] Administration Atorvastatin Calcium 80 mg 07/06/17 22:00 07/11/17 21:42 Lipitor - PO 80 mg HS [facility] Administration Clotrimazole 10 mg 07/08/17 14:00 07/12/17 10:00 Mycelex Mayra's - PO 10 mg 5XD [facility] Administration Labetalol HCl 10 mg 07/05/17 17:09 Normodyne Injection - IVPUSH ONCE PRN HYPERTENSION Losartan Potassium 100 mg 07/12/17 10:00 07/12/17 09:59 Losartan Potassium PO 100 mg DAILY [facility] Administration Ondansetron HCl 4 mg 07/11/17 10:05 Zofran Odt - SL TID PRN NAUSEA Pantoprazole Sodium 40 mg 07/12/17 10:00 07/12/17 09:59 Protonix - PO 40 mg DAILY [facility] Administration Potassium Chloride 20 meq 07/08/17 10:00 07/12/17 09:59 K-Dur - PO 20 meq DAILY [facility] Administration Vital Signs Period Temp Pulse Resp BP Sys/Calvillo Pulse Ox Last 24 Hr 97.4 F-99.0 F 64-104 14-20 108-173/74-92 96-96 Constitutional: Yes: Well Nourished, No Distress Eyes: No: Sclera Icterus Respiratory: Yes: CTA Bilaterally. No: Accessory Muscle Use, Rales, Wheezes Gastrointestinal: Yes: Normal Bowel Sounds. No: Distention, Hepatomegaly, Palpable Mass, Tenderness Cardiovascular: Yes: Regular Rate and Rhythm JVD: No Heart Sounds: Yes: S1, S2. No: Gallop Murmur: No: Systolic Murmur, Diastolic Murmur Extremities: No: Cold, Cyanosis Edema: No Integumentary: No: Jaundice Neurological: Yes: Alert, Oriented (x3), Weakness (LUE and LLE) Psychiatric: No: Agitated - Other Data Labs, Other Data: CBC, BMP 07/12/17 05:20 07/12/17 05:20 tele: SR Echo 01/18: 1. The left ventricular size is normal. 2. Overall left ventricular systolic function is normal with, an EF between 60 - 65 %. 3. Normal LA pressure. 4. The right ventricle is normal in size and function. 5. Left atrium is mildly dilated by volume. 6. Mild tricuspid regurgitation present. echo 07/2017: nl lv/rv, no sig valve path CT head: No acute pathology; old R caudate and R b.g. infarct ECG: NSR, NS TWI v2 (similar to v1)--? lead placement Assessment/Plan acute ischemic CVA (M1/M2 occlusion) 07/04: -s/p t-PA -? cardioembolic etiology--monitor tele for PAF given prior hx (see below) -echo unremarkable here -given known past PAF (though only brief runs on holter), would favor AC here unless definite alternative etiology is found--timing of initiation per neuro -d/w'd dr mcgee: started on eliquis (day 7 from cva presentation), stopped aspirin Paroxysmal atrial fibrillation -BRIEF EPISODES OF PAFIB ON HOLTER 2009--PT BELIEVES SHE HAD NO SX'S WITH THOSE. -HAS HAD INTERMITTENT POST-PRANDIAL PALPITATIONS AT TIMES, POSSIBLY C/W VAGALLY- INDUCED AFIB EPISODES. -REPEATEDLY D/W'D PT THE INCREASED RISK OF STROKE FROM PAROXYSMAL AFIB WITH CHADS-VASC 3, BUT SHE HAS REPEATEDLY DECLINED AC OR LA APPENDAGE CLOSURE ( WATCHMAN), ONLY WAS WILLING TO TAKE ASA -back on AC Essential hypertension -cont current meds Hypercholesterolemia -NOW SEC PREVENTION. -PT FEARFUL OF MED S.E.S B/C VERY SENSITIVE TO THEM IN PAST, INCL MYALGIAS ON STATIN. -ON ZETIA AT HOME, started on statin here. cardiac childs stable for dc
--- NOTE | 2017-07-12 15:57 | PN ---
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 Pt's reports pt not motivated to eat at times. Consider supplements, as indicated. Pending transfer to [place].
[2017-07-12] MEDS: ATORVASTATIN CA 80 MG TABLET (FP) PO SCH (21:21)
--- NOTE | 2017-07-13 09:00 | PN ---
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 (short form) - Note 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: Patient seen and examined. Chart reviewed. Patient well known to me from outpatient care. Currently sitting up in bed. Tolerating diet and capable of feeding herself. No cough noted. Alert and appropriate with persistence of left sided facial droop and UE/LE weakness/neglect. Denies pain or dyspnea. Labs, radiologic procedures and progress/enrollment consultant notes reviewed. [facility] note appreciated. Has been accepted to [facility] for today Selected Entries 07/12/17 07/13/17 21:00 06:00 Temperature 98.3 F Pulse Rate 66 Respiratory 20 Rate Blood Pressure 145/93 O2 Sat by Pulse 96 Oximetry (%) Oxygen Delivery Room Air Method Oropharynx Coated less tongue Right side only Chest Clear Cor RRR No new murmur Telemetry NSR with occasional unifocal PVC Abd soft non-tender Ext No evidence of phlebitis No increased edema Neuro Unchanged left facial droop LUE and LLE weakness and neglect persist Some slight improvement with movement in LLE Assessment and Plan Right MCA CVA with profound left sided deficit Continue PT Consider transfer for rehab Repeat CT noted HTN Will require tighter control Has been intolerant of many medications with idiosyncratic reactions in the past. Consider increasing losartan to 100 mg po daily HPL Intolerant of statins in the past Monitor closely Distant h/o PAF from 2009 Given severity of deficit and risk, would agree with plan of ASA for now and starting NOAC later today Telemetry reviewed No AFib noted Started NOAC therapy Hypokalemia Improved Coated tongue Chronic issue for her Co Continue current Rx [facility] transfer today See yesterday's discharge notes
[2017-07-13] MEDS: POTASSIUM CHLORIDE TABS 20 MEQ TABLET.ER (FP) PO SCH (09:41)
[2017-07-13] MEDS: PANTOPRAZOLE 40 MG TABLET (FP) PO SCH (09:41)
[2017-07-13] MEDS: APIXABAN 5 MG TABLET PO SCH (09:41)
[2017-07-13] MEDS: LOSARTAN POTASSIUM 100 MG TABLET PO SCH (09:41)
[2017-07-13] MEDS: CLOTRIMAZOLE 10 MG TROCHE (FP) PO SCH (09:41)
[2017-07-13 09:45] VITALS: BP 142/82; PULSE 78; TEMP 98.2
--- NOTE | 2017-07-13 12:45 | PN ---
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 (short form) - Note 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: 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: CC: cva S: no cp, palps, sob, dizziness. Vital Signs Period Temp Pulse Resp BP Sys/Calvillo Pulse Ox Last 24 Hr 97.8 F-98.8 F 66-82 14-20 135-148/76-98 96-96 Constitutional: Yes: Well Nourished, No Distress Eyes: No: Sclera Icterus Respiratory: Yes: CTA Bilaterally. No: Accessory Muscle Use, Rales, Wheezes Gastrointestinal: Yes: Normal Bowel Sounds. No: Distention, Hepatomegaly, Palpable Mass, Tenderness Cardiovascular: Yes: Regular Rate and Rhythm JVD: No Heart Sounds: Yes: S1, S2. No: Gallop Murmur: No: Systolic Murmur, Diastolic Murmur Extremities: No: Cold, Cyanosis Edema: No Integumentary: No: Jaundice Neurological: Yes: Alert, Oriented (x3), Weakness (LUE and LLE) Psychiatric: No: Agitated - Other Data Labs, Other Data: CBC, BMP 07/12/17 05:20 07/12/17 05:20 Home Medications Medication Instructions Recorded Multivitamins [Multivit ([facility] 1 tab PO DAILY 09/11/15 Formulary)] Acetaminophen [Tylenol .Regular 650 mg PO Q4H PRN tablet 07/12/17 Strength -] Apixaban [Eliquis -] 5 mg PO BID tablet 07/12/17 Atorvastatin Ca [Lipitor] 80 mg PO HS tablet 07/12/17 Losartan Potassium [Cozaar -] 50 mg PO DAILY tablet 07/12/17 Pantoprazole Sodium [Protonix -] 40 mg PO DAILY tablet.ec 07/12/17 Potassium Chloride [K-Dur -] 20 meq PO DAILY tablet.er 07/12/17 tele: SR Echo 01/18: 1. The left ventricular size is normal. 2. Overall left ventricular systolic function is normal with, an EF between 60 - 65 %. 3. Normal LA pressure. 4. The right ventricle is normal in size and function. 5. Left atrium is mildly dilated by volume. 6. Mild tricuspid regurgitation present. echo 07/2017: nl lv/rv, no sig valve path CT head: No acute pathology; old R caudate and R b.g. infarct ECG: NSR, NS TWI v2 (similar to v1)--? lead placement Assessment/Plan acute ischemic CVA (M1/M2 occlusion) 07/04: -s/p t-PA -? cardioembolic etiology--monitor tele for PAF given prior hx (see below) -echo unremarkable here -given known past PAF (though only brief runs on holter), would favor AC here unless definite alternative etiology is found--timing of initiation per neuro -d/w'd dr mcgee: started on eliquis (day 7 from cva presentation), stopped aspirin Paroxysmal atrial fibrillation -BRIEF EPISODES OF PAFIB ON HOLTER 2009--PT BELIEVES SHE HAD NO SX'S WITH THOSE. -HAS HAD INTERMITTENT POST-PRANDIAL PALPITATIONS AT TIMES, POSSIBLY C/W VAGALLY- INDUCED AFIB EPISODES. -REPEATEDLY D/W'D PT THE INCREASED RISK OF STROKE FROM PAROXYSMAL AFIB WITH CHADS-VASC 3, BUT SHE HAS REPEATEDLY DECLINED AC OR LA APPENDAGE CLOSURE ( WATCHMAN), ONLY WAS WILLING TO TAKE ASA -back on AC Essential hypertension -cont current meds Hypercholesterolemia -NOW SEC PREVENTION. -PT FEARFUL OF MED S.E.S B/C VERY SENSITIVE TO THEM IN PAST, INCL MYALGIAS ON STATIN. -ON ZETIA AT HOME, started on statin here. cardiac childs stable for dc
== END 2017-07-13 11:20 | DRG 62 ==
LOC: JER 10:57 → JERBED 11:59 → JICU 14:55 → J4S 07-05 18:18 → J4W 07-11 12:00
PROVIDERS: ADMIT Internal Medicine; ATTEND Internal Medicine
DX: I63.9 Cerebral infarction, unspecified (principal); G81.94 Hemiplegia, unspecified affecting left nondominant side; I10 Essential (primary) hypertension; E78.5 Hyperlipidemia, unspecified; I49.9 Cardiac arrhythmia, unspecified; I48.0 Paroxysmal atrial fibrillation; E87.6 Hypokalemia; K21.9 Gastro-esophageal reflux disease without esophagitis; R29.704 NIHSS score 4
CPT/HCPCS: 36415; 70450-TC; 70544-TC; 70551-TC; 80048; 80053; 81003; 82465; 82550; 83718; 83721; 83735; 84100; 84478; 84484; 85025; 85610; 86850; 86900; 86901; 87086; 93005; 93010; 93306-TC; 93880-TC; 94010; 97116-GP; 97161-GP; 99285-25; J2997